=== PATIENT | male | born 1945 | race Caucasian/White ===

== ENCOUNTER 2018-02-02 10:25 | Observation (INO) | payer OTHER ==
[2018-02-02] MEDS ORDERED: POTASSIUM CL SA 10 MEQ TAB PO ONE (11:01)
[2018-02-02] MEDS ORDERED: Magnesium Sulfate 2gm IVPB 2 G/50 ML BAG IV ONE ×2 (11:01→16:00)
[2018-02-02 11:25] LABS: Absolute Lymphocytes (CBC) 0.7 K/uL (0.7-4.9); Absolute Monocytes 1.2 K/uL (0.1-1.3); Absolute Neutrophil 4.5 K/uL (1.8-8.0); Basophils % 0.3 % (0-1.3); Eosinophils % 0.6 % (0-4.4); Hematocrit 24.9 % (39.6-49.0); Lymphocytes % 11.1 % (15.3-44.8); MCH 28.2 pg (27.0-35.0); MCV 83.4 fL (80-100); MPV 7.7 fL (7.6-11.3); Monocytes % 18.1 % (3.3-12.3); RBC Red Blood Cell Count 2.99 M/uL (4.33-5.43)
[2018-02-02 11:34] LABS: Potassium 3.1 mmol/L (3.5-5.1)
[2018-02-02 11:41] LABS: Magnesium 0.9 mg/dL (1.8-2.4)
[2018-02-02] MEDS ORDERED: ACETAMINOPHEN 500 MG TAB ONE (11:43)
--- NOTE | 2018-02-02 12:08 | EDPHYS ---
Physician Documentation [facility] Name: Giovany Singh Age: 72 yrs Sex: Male : 1945 Arrival Date: 02/02/2018 Time: 10:29 Bed 16 Private MD: Gregorio Liu C ED Physician Jorge Ibrahim HPI: 02/02 18:44 This 72 yrs old Male presents to ER via Ambulatory with complaints of Low kdr Magnesium. 18:44 The patient had a blood draw from an outside lab which showed that the patient had low kdr mg and k. Sent for re-eval/confirmation and possible admission. Onset: The symptoms/episode began/occurred at an unknown time. Severity of symptoms: At their worst the symptoms were very mild in the emergency department the symptoms are unchanged. It is unknown whether or not the patient has had similar symptoms in the past. The patient has been recently seen by a physician: the patient's primary care provider. Historical: - Allergies: 10:37 Morphine; aj1 10:37 PENICILLINS; aj1 10:37 Codeine; aj1 - Home Meds: 10:37 Advair Diskus 250-50 mcg/dose Inhl dsdv [Active]; Coreg 25 mg Oral tab [Active]; aj1 gabapentin 100 mg Oral cap [Active]; metformin 500 mg Oral tab 2 tabs 2 times per day [Active]; victosa [Active]; pantoprazole 40 mg Oral TbEC [Active]; prednisone 10 mg Oral tab [Active]; Singulair 10 mg Oral tab [Active]; Spiriva daily [Active]; valsartan 320 mg Oral tab [Active]; Vitamin D3 5,000 unit Oral tab [Active]; Xarelto 20 mg Oral tab 1 tab once daily [Active]; Zyrtec 10 mg Oral tab [Active]; - PMHx: 10:37 Asthma; Bladder cancer; Diabetes - NIDDM; HEART STENT; Hyperlipidemia; Hypertension; aj1 Prostate Cancer; kidney cancer- currently undergoing chemo; melanoma; - PSHx: 10:37 prostate surgery; bladder surgery; back surgery; aj1 - Immunization history:: Flu vaccine is up to date. - Social history:: Smoking status: Patient/guardian denies using tobacco, the patient reports quitting approximately 20 years ago. - Ebola Screening: : Patient denies travel to an Ebola-affected area in the 21 days before illness onset. ROS: 18:44 Constitutional: Negative for fever, chills, and weight loss, Eyes: Negative for injury, kdr pain, redness, and discharge, Neck: Negative for injury, pain, and swelling, Cardiovascular: Negative for chest pain, palpitations, and edema, Respiratory: Negative for shortness of breath, cough, wheezing, and pleuritic chest pain, Abdomen/GI: Negative for abdominal pain, nausea, vomiting, diarrhea, and constipation, Back: Negative for injury and pain, : Negative for injury, bleeding, discharge, and swelling, MS/Extremity: Negative for injury and deformity, Skin: Negative for injury, rash, and discoloration, Neuro: Negative for headache, weakness, numbness, tingling, and seizure activity. Allergy/Immunology: Negative for hives, rash, and allergies. Exam: 18:44 Constitutional: This is a well developed, well nourished patient who is awake, alert, kdr and in no acute distress. Head/Face: Normocephalic, atraumatic. Eyes: Pupils equal round and reactive to light, extra-ocular motions intact. Lids and lashes normal. Conjunctiva and sclera are non-icteric and not injected. Cornea within normal limits. Periorbital areas with no swelling, redness, or edema. Neck: Trachea midline, no thyromegaly or masses palpated, and no cervical lymphadenopathy. Supple, full range of motion without nuchal rigidity, or vertebral point tenderness. No Meningismus. Chest/axilla: Normal chest wall appearance and motion. Nontender with no deformity. No lesions are appreciated. Cardiovascular: Regular rate and rhythm with a normal S1 and S2. No gallops, murmurs, or rubs. Normal PMI, no JVD. No pulse deficits. Respiratory: Lungs have equal breath sounds bilaterally, clear to auscultation and percussion. No rales, rhonchi or wheezes noted. No increased work of breathing, no retractions or nasal flaring. Abdomen/GI: Soft, non-tender, with normal bowel sounds. No distension or tympany. No guarding or rebound. No evidence of tenderness throughout. Back: No spinal tenderness. No costovertebral tenderness. Full range of motion. Skin: Warm, dry with normal turgor. Normal color with no rashes, no lesions, and no evidence of cellulitis. MS/ Extremity: Pulses equal, no cyanosis. Neurovascular intact. Full, normal range of motion. Neuro: Awake and alert, GCS 15, oriented to person, place, time, and situation. Cranial nerves II-XII grossly intact. Motor strength 5/5 in all extremities. Sensory grossly intact. Cerebellar exam normal. Normal gait. Psych: Awake, alert, with orientation to person, place and time. Behavior, mood, and affect are within normal limits. Vital Signs: 10:37 BP 112 / 57; Pulse 93; Resp 20; Temp 99.0(TE); Pulse Ox 99% on R/A; Weight 113.4 kg aj1 (R); Height 5 ft. 11 in. (180.34 cm) (R); Pain 0/10; 11:32 BP 114 / 67; Pulse 70; Resp 11; Pulse Ox 97% on R/A; tw2 11:45 Temp 99.6; tw2 12:00 BP 104 / 68; Pulse 74; Resp 17; Pulse Ox 98% on R/A; tw2 13:08 BP 111 / 98; Pulse 76; Resp 15; Pulse Ox 95% on R/A; tw2 13:10 Temp 98.7(O); tw2 10:37 Body Mass Index 34.87 (113.40 kg, 180.34 cm) aj1 MDM: 12:07 Patient medically screened. kdr 18:44 Data reviewed: vital signs, nurses notes, lab test result(s). Counseling: I had a kdr detailed discussion with the patient and/or guardian regarding: the historical points, exam findings, and any diagnostic results supporting the discharge/admit diagnosis, lab results, the need for further work-up and treatment in the hospital. 02/02 10:33 Order name: CBC with Diff [facility] 02/02 10:33 Order name: Chem 7; Complete Time: 11:55 kdr 02/02 10:33 Order name: Magnesium; Complete Time: 11:55 kdr 02/02 11:17 Order name: Strep; Complete Time: 11:55 tw2 02/02 11:37 Order name: Throat Culture [facility] 02/02 11:41 Order name: Blood Culture Adult (2) tw2 02/02 11:41 Order name: Urine Culture tw2 02/02 12:24 Order name: Potassium EDMS 02/02 12:24 Order name: Magnesium EDMS 02/02 12:24 Order name: Basic Metabolic Panel EDMS 02/02 12:24 Order name: Basic Metabolic Panel EDMS 02/02 12:24 Order name: CBC with Automated Diff EDMS 02/02 12:24 Order name: CBC with Automated Diff EDMS 02/02 12:37 Order name: Type And Screen kdr 02/02 10:51 Order name: IV Start; Complete Time: 11:16 tw2 02/02 12:24 Order name: Regular EDMS 02/02 12:46 Order name: Manual Differential EDMS Administered Medications: 11:10 Drug: Potassium Chloride 40 mEq Route: PO; tw2 11:53 Follow up: Response: No adverse reaction tw2 11:15 Drug: Magnesium Sulfate 2 grams Route: IVPB; Infused Over: 2 hrs; Site: left tw2 antecubital; 13:06 Follow up: Response: No adverse reaction; IV Status: Completed infusion tw2 11:45 Drug: Tylenol 1000 mg Route: PO; tw2 13:10 Follow up: Temp 98.7 Oral; Response: No adverse reaction; Temperature is decreased tw2 Disposition: 02/02/18 12:07 Hospitalization ordered by Gregorio Liu for Observation. Preliminary diagnosis are Other disorders of electrolyte and fluid balance, not elsewhere classified, Hypomagnesemia, Hypokalemia. - Bed requested for Telemetry/MedSurg (observation). - Status is Observation. tw2 - Condition is Fair. - Problem is new. - Symptoms have improved. UTI on Admission? No Signatures: Dispatcher [employer] EDAR Danyell Lopez RN RN aj1 Jorge Ibrahim MD MD kdr Judie Mcdonald Tara, RN RN tw2 Corrections: (The following items were deleted from the chart) 12:57 12:07 Hospitalization Ordered by A Noe HOWARD for Observation. Preliminary diagnosis is ag Other disorders of electrolyte and fluid balance, not elsewhere classified; Hypomagnesemia; Hypokalemia. Bed requested for Telemetry/MedSurg (observation). Status is Observation. Condition is Fair. Problem is new. Symptoms have improved. UTI on Admission? No. kdr 13:30 12:57 02/02/2018 12:07 Hospitalization Ordered by Gregorio Liu MD for Observation. tw2 Preliminary diagnosis is Other disorders of electrolyte and fluid balance, not elsewhere classified; Hypomagnesemia; Hypokalemia. Bed requested for Telemetry/MedSurg (observation). Status is Observation. Condition is Fair. Problem is new. Symptoms have improved. UTI on Admission? No. ag
--- NOTE | 2018-02-02 12:08 | ER ---
Nurse's Notes [facility] Name: Giovany Singh Age: 72 yrs Sex: Male : 1945 Arrival Date: 02/02/2018 Time: 10:29 Bed 16 Private MD: Gregorio Liu C Diagnosis: Other disorders of electrolyte and fluid balance, not elsewhere classified;Hypomagnesemia;Hypokalemia Presentation: 02/02 10:30 Presenting complaint: Patient states: "Dr. Liu called me this morning and said that my aj1 magnesium and sodium were dangerously low" Denies pain. Reports weakness, dizziness. Transition of care: patient was not received from another setting of care. Onset of symptoms was February 02, 2018. Risk Assessment: Do you want to hurt yourself or someone else? Patient reports no desire to harm self or others. Initial Sepsis Screen: Does the patient meet any 2 criteria? No. Patient's initial sepsis screen is negative. Does the patient have a suspected source of infection? No. Patient's initial sepsis screen is negative. Care prior to arrival: None. 10:30 Method Of Arrival: Ambulatory aj1 10:30 Acuity: CARLA 2 aj1 Triage Assessment: 10:37 General: Appears in no apparent distress. comfortable, Behavior is calm, cooperative, aj1 appropriate for age. Pain: Denies pain. Neuro: Level of Consciousness is awake, alert, obeys commands, Speech is normal, Facial symmetry appears normal, Reports dizziness, weakness. Cardiovascular: Patient's skin is warm and dry. Respiratory: Airway is patent Respiratory effort is even, unlabored, Respiratory pattern is regular, symmetrical. GI: Reports bloating. Derm: Skin is pink, warm \\T\\ dry. normal. Musculoskeletal: Circulation, motion, and sensation intact. Historical: - Allergies: 10:37 Morphine; aj1 10:37 PENICILLINS; aj1 10:37 Codeine; aj1 - Home Meds: 10:37 Advair Diskus 250-50 mcg/dose Inhl dsdv [Active]; Coreg 25 mg Oral tab [Active]; aj1 gabapentin 100 mg Oral cap [Active]; metformin 500 mg Oral tab 2 tabs 2 times per day [Active]; victosa [Active]; pantoprazole 40 mg Oral TbEC [Active]; prednisone 10 mg Oral tab [Active]; Singulair 10 mg Oral tab [Active]; Spiriva daily [Active]; valsartan 320 mg Oral tab [Active]; Vitamin D3 5,000 unit Oral tab [Active]; Xarelto 20 mg Oral tab 1 tab once daily [Active]; Zyrtec 10 mg Oral tab [Active]; - PMHx: 10:37 Asthma; Bladder cancer; Diabetes - NIDDM; HEART STENT; Hyperlipidemia; Hypertension; aj1 Prostate Cancer; kidney cancer- currently undergoing chemo; melanoma; - PSHx: 10:37 prostate surgery; bladder surgery; back surgery; aj1 - Immunization history:: Flu vaccine is up to date. - Social history:: Smoking status: Patient/guardian denies using tobacco, the patient reports quitting approximately 20 years ago. - Ebola Screening: : Patient denies travel to an Ebola-affected area in the 21 days before illness onset. Screenin:36 Abuse screen: Denies threats or abuse. Nutritional screening: No deficits noted. tw2 Tuberculosis screening: No symptoms or risk factors identified. Fall Risk None identified. Assessment: 10:45 General: Appears in no apparent distress. well groomed, Behavior is calm, cooperative, tw2 appropriate for age. Pain: Denies pain. Neuro: Level of Consciousness is awake, alert, obeys commands, Oriented to person, place, time, situation. Cardiovascular: Denies chest pain, shortness of breath, Heart tones S1 S2 Patient's skin is warm and dry. Respiratory: Airway is patent Respiratory effort is even, unlabored, Respiratory pattern is regular, symmetrical, Breath sounds are clear bilaterally. GI: Abdomen is round non-distended, Bowel sounds present X 4 quads. : No signs and/or symptoms were reported regarding the genitourinary system. EENT: No signs and/or symptoms were reported regarding the EENT system. Derm: No signs and/or symptoms reported regarding the dermatologic system. Musculoskeletal: Reports "just fatigued". 11:32 Reassessment: Patient appears in no apparent distress at this time. No changes from tw2 previously documented assessment. Patient and/or family updated on plan of care and expected duration. Pain level reassessed. Patient is alert, oriented x 3, equal unlabored respirations, skin warm/dry/pink. 12:30 Reassessment: Patient appears in no apparent distress at this time. No changes from tw2 previously documented assessment. Patient and/or family updated on plan of care and expected duration. Pain level reassessed. Patient is alert, oriented x 3, equal unlabored respirations, skin warm/dry/pink. 13:09 Reassessment: Patient appears in no apparent distress at this time. No changes from tw2 previously documented assessment. Patient and/or family updated on plan of care and expected duration. Pain level reassessed. Patient is alert, oriented x 3, equal unlabored respirations, skin warm/dry/pink. Vital Signs: 10:37 BP 112 / 57; Pulse 93; Resp 20; Temp 99.0(TE); Pulse Ox 99% on R/A; Weight 113.4 kg aj1 (R); Height 5 ft. 11 in. (180.34 cm) (R); Pain 0/10; 11:32 BP 114 / 67; Pulse 70; Resp 11; Pulse Ox 97% on R/A; tw2 11:45 Temp 99.6; tw2 12:00 BP 104 / 68; Pulse 74; Resp 17; Pulse Ox 98% on R/A; tw2 13:08 BP 111 / 98; Pulse 76; Resp 15; Pulse Ox 95% on R/A; tw2 13:10 Temp 98.7(O); tw2 10:37 Body Mass Index 34.87 (113.40 kg, 180.34 cm) aj1 ED Course: 10:29 Patient arrived in ED. mr 10:30 Greogrio Liu MD is Private Physician. mr 10:32 Jorge Ibrahim MD is Attending Physician. kdr 10:33 Triage completed. aj1 10:37 Arm band placed on Patient placed in an exam room. aj1 10:45 Bed in low position. Call light in reach. Side rails up X2. Adult w/ patient. Cardiac tw2 monitor on. Pulse ox on. NIBP on. Warm blanket given. 10:49 Denise Bro RN is Primary Nurse. tw2 11:16 Chem 7 Sent. tw2 11:16 CBC with Diff Sent. tw2 11:40 Inserted saline lock: 20 gauge in left antecubital area, using aseptic technique. Blood tw2 collected. 11:53 Blood Culture Adult (2) Sent. tw2 12:06 Gregorio Liu MD is Hospitalizing Provider. kdr 13:09 Report given to SALAZAR Wyatt. tw2 13:31 No provider procedures requiring assistance completed. Patient admitted, IV remains in tw2 place. Administered Medications: 11:10 Drug: Potassium Chloride 40 mEq Route: PO; tw2 11:53 Follow up: Response: No adverse reaction tw2 11:15 Drug: Magnesium Sulfate 2 grams Route: IVPB; Infused Over: 2 hrs; Site: left tw2 antecubital; 13:06 Follow up: Response: No adverse reaction; IV Status: Completed infusion tw2 11:45 Drug: Tylenol 1000 mg Route: PO; tw2 13:10 Follow up: Temp 98.7 Oral; Response: No adverse reaction; Temperature is decreased tw2 Outcome: 12:07 Decision to Hospitalize by Provider. kdr 13:30 Patient left the ED. tw2 13:31 Admitted to Med/surg accompanied by nurse, via wheelchair, room 404, with chart, Report tw2 called to SALAZAR Wyatt 13:31 Condition: stable 13:31 Instructed on the need for admit. Signatures: Danyell Lopez RN RN aj1 Jorge Ibrahim MD MD kdr Rivera, Maria mr Wise, Tara, RN RN tw2
[2018-02-02] MEDS ORDERED: ACETAMINOPHEN 500 MG TAB PO PRN (12:19)
[2018-02-02] MEDS ORDERED: ONDANSETRON 4 MG/2 ML VIAL IV PRN (12:19)
[2018-02-02 12:44] LABS: Anisocytosis 2+; Blood Morphology Comment NOTED (NOT SEEN); Hypochromasia 1+; Platelet Estimate ADEQ
[2018-02-02 14:17] LABS: Magnesium 1.5 mg/dL (1.8-2.4)
[2018-02-02] MEDS ORDERED: PNEUMOCOCCAL VACCINE 0.5 ML IMVAC ONE (15:00)
[2018-02-02] MEDS ORDERED: GLUCAGON 1 MG/VIAL IM PRN (15:24)
[2018-02-02] MEDS ORDERED: D50W 25 GM/50 ML SYRINGE IV PRN (15:24)
[2018-02-02] MEDS ORDERED: NA CHLORIDE 0.9% 250 ML ONE (16:07)
[2018-02-02] MEDS: INSULIN -REGULAR HUMAN 50 UNIT/0.5 ML ML SQ SCH ×2 (16:08→21:00)
[2018-02-02] MEDS: KCL 20 MEQ/100 mL IVPB 20 MEQ/100 ML BAG IV SCH ×2 (16:08→17:17)
[2018-02-02 22:03] LABS: Urine Appearance CLOUDY; Urine Bilirubin NEGATIVE (NEG); Urine Blood 1+ (NEG); Urine Color YELLOW; Urine Glucose NEGATIVE (NEG); Urine Protein 1+ (NEG); Urine Urobilinogen 0.2 mg/dL (0.2-1.0); Urine pH 5.5 (5.0-7.0)
[2018-02-02 22:09] LABS: Urine Microscopic Reflex ORDER UMIC
[2018-02-02 22:22] LABS: Urine Bacteria 20-50 /HPF (NONE SEEN); Urine Culture Reflex Order NOT NEEDED; Urine Mucus 2+ /HPF (NONE SEEN)
--- NOTE | 2018-02-03 05:34 | HP ---
Date of Admission: 02/02/2018 Chief Complaint: Abnormal blood test results. History Of Present Illness: This is a 72-year-old male patient, who had routine blood work done yest jessicaay at the office, and early this morning [facility] reported that his blood test was critical and ata zelaya found out that his magnesium level was 0.9, potassium level was 3.3. With that, the patient was co ntacted and I did talk to him this morning and requested the patient to come to emergency room for fu rther evaluation and management. After he was evaluated, he was admitted to the hospital. I saw him this evening. We have started to give him replacement of potassium and magnesium for correction. T he patient is undergoing chemotherapy at [facility] for his kidney cancer problem and he has been oneill ving diarrhea off and on lately. He says that his magnesium level was low at some point as he was to ld by [facility] and he takes [id number] magnesium 400 mg twice a day. Denies any vomiting. He was also started recently on Levaquin 1 tablet every other day for 4 doses and he just took 1 dose as it was just started recently. He is having some purulent type of discharge from his eyes on the medial angle and in the morning he has noted some matting of his eyelids, and this was very obvious w veda I saw him today. With his recent chemotherapy, he has lost some appetite and weight as he report s. His weight today upon admission is 250 pounds and last weight at office on January 04, 2018, it was 252 pounds. Medications: List reviewed. Review of Systems: GI: As mentioned above. Ophthalmology: As mentioned above. All other systems reviewed and negative. Allergies: HYDROCHLOROTHIAZIDE, MORPHINE, AND PENICILLIN. Past Medical History: Significant for kidney cancer, chronic steroid therapy, hypertension, mixed hy perlipidemia, diabetes mellitus, prostate cancer, bladder cancer, melanoma, osteoarthritis at multipl e sites, chronic anticoagulation therapy, chronic atrial fibrillation, adrenal insufficiency, gastroe sophageal reflux disease, allergic rhinitis. Past Surgical History: Radical prostatectomy in 1996, back surgery in 2008, sinus surgery 2009, yandel nary artery angioplasty with stent placement of LAD in 2014, surgery for bladder cancer and removal o f melanoma and removal of a lipoma in the past. Family History: Significant for colon cancer, liver cancer, breast cancer, lupus. Social History: Negative for smoking and alcohol use. Physical Examination: Vital Signs: When he first came into emergency room blood pressure 112/57, pulse 93, respiratory rat e 20, temperature 99, pulse ox 99%. Weight 113.4 kg, height 5 feet 11 inches. General: Awake, alert, oriented, not in distress. HEENT: Head atraumatic, normocephalic. Presence of some white, slightly yellowish colored discharge from medial angle of both eyes. Mouth, no thrush or edema noted. Ears/Nose; no mass, lesion, disch arge noted. Neck: Supple. No JVD, lymph nodes, bruit, thyromegaly noted. Lungs: Bilateral good equal air entry. Clear to auscultation. No rhonchi. No rales. Heart: Normal heart sounds, no murmur or gallop. Abdomen: Soft, bowel sounds normal. No guarding, rigidity, tenderness, mass, hepatosplenomegaly, dis tention, or bruit noted. Extremities: No leg edema. No calf tenderness. Skin: No rash, ulcer, cellulitis. Lymphatics: No lymph node enlargement in neck, supraclavicular, infraclavicular region. Neuro: No focal neurological deficit. Chest: Unremarkable. External Genitalia: Deferred. Rectal: Deferred. Laboratory Data: White count 6.4, hemoglobin 8.4, platelets 171. Sodium 134, potassium 3.1, chlorid e 94, bicarb 32, BUN 29, creatinine 2.10, glucose 116, magnesium 0.9. After initial correction in th e emergency room, potassium was 3, magnesium 1.5. Urinalysis; 2+ esterase, 20-50 bacteria, wbc 20-50 . Impression: 1.Hypomagnesemia. 2.Hypokalemia. 3.Volume depletion. 4.Diarrhea. 5.Urinary tract infection. 6.Anemia. 7.Kidney cancer. 8.Prostate cancer. 9.Bladder cancer. 10.Melanoma. 11.Hyperlipidemia, mixed. 12.Type 2 diabetes mellitus. 13.Chronic steroid therapy. 14.Chronic anticoagulation therapy. Plan: Admit the patient to hospital for further evaluation and management of this problem. The flako ent is appropriate for observation, and depending on his condition overnight we will plan to discharg e him to go home tomorrow. The patient's electrolytes will be corrected per protocol. We will mark nue home medications per order. Diabetes will be managed with sliding scale insulin, and I will see him tomorrow morning for followup. Details on plan of treatment discussed with patient and patient's . Upon discharge, we will make necessary changes on his magnesium and potassium replacement. Ken zelaya gets blood work at [facility] about almost every 2 weeks, and I will have him come to my office fo r blood work also every 2 weeks and we will not overlap blood work with [facility]. We will plan it in a way that he gets blood test done almost on a weekly basis to check on his electrolytes. Stool test was ordered for stool culture as well as stool C. diff. AIRAM/MODL Voice ID: [id number]
[2018-02-03 05:44] LABS: Absolute Lymphocytes (CBC) 0.8 K/uL (0.7-4.9); Absolute Monocytes 1.1 K/uL (0.1-1.3); Absolute Neutrophil 3.7 K/uL (1.8-8.0); Basophils % 0.3 % (0-1.3); Eosinophils % 1.2 % (0-4.4); Hematocrit 23.4 % (39.6-49.0); Lymphocytes % 13.8 % (15.3-44.8); MCH 28.1 pg (27.0-35.0); MCV 82.7 fL (80-100); MPV 7.9 fL (7.6-11.3); Monocytes % 19.2 % (3.3-12.3); RBC Red Blood Cell Count 2.83 M/uL (4.33-5.43)
[2018-02-03 05:58] LABS: Magnesium 1.6 mg/dL (1.8-2.4); Potassium 3.3 mmol/L (3.5-5.1)
[2018-02-03] MEDS ORDERED: MAGNESIUM SULFATE 1 gm IVPB 1 GM/100 ML BAG IV ONE (06:20)
[2018-02-03] MEDS ORDERED: Magnesium Sulfate 1gm IVPB 1 GM/50 ML BAG IV ONE (07:15)
[2018-02-03] MEDS: INSULIN -REGULAR HUMAN 50 UNIT/0.5 ML ML SQ SCH ×2 (07:30→11:30)
[2018-02-03] MEDS: KCL 20 MEQ/100 mL IVPB 20 MEQ/100 ML BAG IV SCH ×2 (07:44→11:20)
[2018-02-03 08:10] LABS: Anisocytosis 2+; Blood Morphology Comment NOTED (NOT SEEN); Platelet Estimate ADEQ; Poikilocytosis 1+; Urine White Blood Cell Casts OK
[2018-02-03] MEDS ORDERED: CARVEDILOL 25 MG PO SCH (09:00)
[2018-02-03] MEDS ORDERED: HOME MED 1 EA UNK (Montelukast [Singulair*] 10 MG) PO SCH (09:00)
[2018-02-03] MEDS ORDERED: HOME MED 1 EA UNK (Aspirin Chewable [Aspirin Chewable*] 81 MG) PO SCH (09:00)
[2018-02-03] MEDS ORDERED: TIOTROPIUM 18 MCG IH SCH (09:00)
[2018-02-03] MEDS ORDERED: RIVAROXABAN 20 MG PO SCH (09:00)
[2018-02-03] MEDS ORDERED: HOME MED 1 EA UNK (Fluticasone/Salmeterol [Advair 250/50 Diskus*] 1 PUFF) IH SCH (09:00)
[2018-02-03] MEDS ORDERED: HOME MED 1 EA UNK (Prednisone [Prednisone*] 10 MG) PO SCH (09:00)
[2018-02-03] MEDS ORDERED: LEVOFLOXACIN 750 MG PO SCH (09:00)
[2018-02-03] MEDS ORDERED: METOCLOPRAMIDE 10 MG PO SCH (09:00)
[2018-02-03] MEDS ORDERED: FUROSEMIDE 40 MG PO SCH (09:00)
[2018-02-03] MEDS ORDERED: NIFEDIPINE PO SCH (09:00)
--- NOTE | 2018-02-04 18:30 | DS ---
Date of Discharge: 02/03/2018 Disposition: Discharged to go home. Physical Examination: HEENT: Unremarkable. Lungs: Clear to auscultation. Heart: Sounds normal. Abdomen: Soft, bowel sounds normal. No guarding, rigidity, tenderness, or distention. Extremities: No leg edema. Hospital Course: A 72-year-old male patient, who came into office for routine blood work. In his bl ood test showed some critical abnormal electrolyte problems. Magnesium 0.7 and potassium was 3.3. T he patient was contacted and was asked to come to the emergency room. Repeat potassium was 3.1 and m agnesium level was 0.9. We started to correct his electrolyte abnormality in the emergency room and decision was made to admit him to hospital for observation, so we can continue to correct this proble m. The patient is undergoing chemotherapy at [facility] for his kidney cancer and he has gone throu gh 4 rounds of chemotherapy, he has 2 more to go and after that he will undergo surgery as he says. He has been having intermittent diarrhea. At home, he takes magnesium 400 mg tablet 2 times a day. After he was admitted to the hospital we corrected his electrolyte using electrolyte replacement prot ocol. He was noted to have some pink colored drainage from medial angle of both eyes and says this h as been going on lately. We will have to go ahead and treat him for conjunctivitis type of problem w ith some antibiotic eyedrops prescription for Vigamox was sent to his pharmacy from my office and the patient will use it as prescribed 1 drop 3 times a day in both eyes for 5-7 days. The patient had v olume depletion when he came in, it was corrected with IV fluid. He was given Levaquin 4 tablets 1 t ablet to be taken every other day from [facility] and he had just taken 1 tablet before he came into the hospital, he will continue to take that antibiotic as prescribed. He has received 2 units of pa cked red cell blood transfusion at [facility] this week on Tuesday and next week on Tuesday he is mateo g back for repeat blood work. I have advised him to come to my office on a weekly basis to get his b lood test done for close monitoring of his electrolytes and he will start that blood work as of this coming Tuesday, February 06, 2018. The patient was discharged to go home in stable condition with followi ng discharge medications and instructions. Final Diagnoses: 1.Hypomagnesemia. 2.Hypokalemia. 3.Volume depletion. 4.Diarrhea. 5.Urinary tract infection. 6.Anemia. 7.Kidney cancer. 8.Prostate cancer. 9.Bladder cancer. 10.Melanoma. 11.Hyperlipidemia. 12.Type 2 diabetes mellitus. 13.Chronic steroid therapy. 14.Chronic anticoagulation therapy. Discharge Medications And Instructions: 1.Continue all prior home medication except discontinue furosemide. 2.Start new medication as prescribed, which is spironolactone 25 mg 1 tablet by mouth daily. Magnes ium oxide 400 mg, patient to take 2 tablets by mouth 2 times a day. 3.Follow up at my office in 2 weeks. 4.Come to my office once a week for blood work starting 02/06/2018. Laboratory Data: Labs done during this hospitalization. Initial potassium was 3.1, BUN 29, creatini ne 2.10, magnesium 0.9. Last potassium 3.3, BUN 23, creatinine 1.40, magnesium 1.6. AIRAM/MODL Voice ID: [id number] Report ID: [id number]
== END 2018-02-03 18:35 | disposition home or self-care (01) ==
LOC: ER 10:25 → ERHOLD 12:17 → 4TH 13:10
PROVIDERS: ADMIT Internal Medicine; ATTEND Internal Medicine
DX: E83.42 Hypomagnesemia (principal); E87.6 Hypokalemia; E86.9 Volume depletion, unspecified; R19.7 Diarrhea, unspecified; N39.0 Urinary tract infection, site not specified; D64.9 Anemia, unspecified; C64.9 Malignant neoplasm of unspecified kidney, except renal pelvis; Z85.51 Personal history of malignant neoplasm of bladder; Z85.820 Personal history of malignant melanoma of skin; Z85.46 Personal history of malignant neoplasm of prostate; E78.5 Hyperlipidemia, unspecified; E11.9 Type 2 diabetes mellitus without complications; Z79.52 Long term (current) use of systemic steroids; Z79.01 Long term (current) use of anticoagulants; Z88.0 Allergy status to penicillin
CPT/HCPCS: 36415 ×2; 80048 ×2; 82962 ×3; 83735 ×4; 84132; 85025 ×2; 86850; 86900; 86901; 87040 ×2; 87045; 87046; 87070; 87081; 87086; 87088; 87493; 96365; 96366; 99285; G0378 ×2; J3475 ×3; 81003; 81015

== ENCOUNTER 2018-10-07 15:20 | Inpatient (IN) | payer OTHER ==
[2018-10-07] MEDS ORDERED: LEVALBUTEROL 1.25 MG/3 ML NEB ONE (16:38)
[2018-10-07] MEDS ORDERED: METHYLPREDNISOLONE 125 MG INJ ONE (16:38)
[2018-10-07 17:04] LABS: Absolute Lymphocytes (CBC) 0.8 K/uL (0.7-4.9); Absolute Neutrophil 5.2 K/uL (1.8-8.0); Basophils % 0.6 % (0-1.3); Eosinophils % 0.1 % (0-4.4); Hematocrit 38.5 % (39.6-49.0); Lymphocytes % 11.6 % (15.3-44.8); MPV 8.8 fL (7.6-11.3); Monocytes % 13.8 % (3.3-12.3); RBC Red Blood Cell Count 4.16 M/uL (4.33-5.43)
[2018-10-07 17:16] LABS: Potassium 4.4 mmol/L (3.5-5.1)
[2018-10-07] MEDS ORDERED: CEFTRIAXONE/SWI 1gm 1 GM/10 ML SYR ONE (17:49)
[2018-10-07] MEDS ORDERED: NA CHLORIDE 0.9% 500 ML ONE (17:49)
--- NOTE | 2018-10-07 18:13 | RAD REPORT ---
EXAM DESCRIPTION: RAD - Chest Single View - 10/07/2018 6:01 pm CLINICAL HISTORY: Cough;SOB Chest pain. COMPARISON: Chest Pa And Lat (2 Views) dated 09/09/2017; Chest Single View dated 09/07/2017; Chest Sin gle View dated 09/06/2017; Chest Single View dated 09/05/2017 FINDINGS: Portable technique limits examination quality. The lungs are grossly clear. The heart is mildly enlarged in size. Moderate S-shaped thoracic scolios is.
--- NOTE | 2018-10-07 18:24 | ER ---
Nurse's Notes [facility] Name: Giovany Singh Age: 73 yrs Sex: Male : 1945 Arrival Date: 10/07/2018 Time: 15:24 Bed 19 Private MD: Gregorio Liu C Diagnosis: Hypoxemia;Pneumonia;Urinary tract infection, site not specified Presentation: 10/07 16:06 Presenting complaint: Patient states: dry cough, shortness of breath, and chest aa5 tightness that began 2-3 days ago. Pt's reports last immunotherapy tx was 1 month ago. Transition of care: patient was not received from another setting of care. Onset of symptoms was September 2018. Risk Assessment: Do you want to hurt yourself or someone else? Patient reports no desire to harm self or others. Care prior to arrival: None. 16:06 Method Of Arrival: Ambulatory aa5 16:06 Acuity: CARLA 3 aa5 16:45 Initial Sepsis Screen: Does the patient meet any 2 criteria? No. Patient's initial tw2 sepsis screen is negative. Does the patient have a suspected source of infection? No. Patient's initial sepsis screen is negative. Triage Assessment: 16:45 General: Appears in no apparent distress. Behavior is calm. Pain: Denies pain. tw2 Respiratory: Reports shortness of breath Onset: The symptoms/episode began/occurred yesterday, the patient has moderate shortness of breath. Historical: - Allergies: 16:08 Morphine; aa5 16:48 Codeine; tw2 16:48 PENICILLINS; tw2 - Home Meds: 16:48 Advair Diskus 250-50 mcg/dose Inhl dsdv [Active]; clonidine HCl 0.1 mg Oral tab 1 tab 3 tw2 times per day [Active]; Coreg 25 mg Oral tab [Active]; gabapentin 100 mg Oral cap [Active]; metformin 500 mg Oral tab 2 tabs 2 times per day [Active]; pantoprazole 40 mg Oral TbEC [Active]; prednisone 10 mg Oral tab [Active]; Singulair 10 mg Oral tab [Active]; Spiriva daily [Active]; valsartan 320 mg Oral tab [Active]; Vitamin D3 5,000 unit Oral tab [Active]; victosa [Active]; Xarelto 20 mg Oral tab 1 tab once daily [Active]; Zyrtec 10 mg Oral tab [Active]; - PMHx: 16:08 Asthma; Bladder cancer; Diabetes - NIDDM; HEART STENT; Hyperlipidemia; Hypertension; aa5 melanoma; Prostate Cancer; Kidney/ 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 - Social history:: Smoking status: Patient/guardian denies using tobacco. - Ebola Screening: : Patient denies travel to an Ebola-affected area in the 21 days before illness onset No symptoms or risks identified at this time. - Family history:: not pertinent. - Hospitalizations: : No recent hospitalization is reported. Screenin:44 Abuse screen: Denies threats or abuse. Nutritional screening: No deficits noted. tw2 Tuberculosis screening: No symptoms or risk factors identified. Fall Risk Secondary diagnosis (15 points) impaired mobility. Assessment: 16:20 General: Appears in no apparent distress. comfortable, Behavior is calm, cooperative, em Reports feeling ill for 2-3 days. Pain: Complains of pain in chest and abdomen. Neuro: Level of Consciousness is awake, alert, obeys commands, Oriented to person, place, time, situation. Cardiovascular: Reports shortness of breath, since chest tightness Heart tones S1 S2 present Capillary refill < 3 seconds Rhythm is regular. Respiratory: Reports shortness of breath at rest cough that is non-productive, labored breathing Airway is patent Respiratory effort is even, unlabored, Respiratory pattern is regular, symmetrical, Breath sounds are diminished bilaterally. Onset: The symptoms/episode began/occurred 2-3 days. GI: Abdomen is obese. Derm: Skin is intact, is healthy with good turgor, Skin is pink, warm \T\ dry. Musculoskeletal: Capillary refill < 3 seconds, Range of motion: intact in all extremities. 16:46 Cardiovascular: Rhythm is regular. Respiratory: Airway is patent Respiratory effort is tw2 even, unlabored, Breath sounds with wheezes bilaterally. 17:30 Reassessment: Patient appears in no apparent distress at this time. Patient and/or em family updated on plan of care and expected duration. Pain level reassessed. reports having urinary frequency, request to have urine checked. 18:30 Reassessment: Patient appears in no apparent distress at this time. Patient and/or em family updated on plan of care and expected duration. Pain level reassessed. Patient is alert, oriented x 3, equal unlabored respirations, skin warm/dry/pink. Patient states feeling better. 19:15 Reassessment: Patient appears in no apparent distress at this time. Patient and/or cc3 family updated on plan of care and expected duration. Pain level reassessed. Patient is alert, oriented x 3, equal unlabored respirations, skin warm/dry/pink. Received this male patient from morning shift [facility] as a case of shortness of breath for admission awaiting bed availability. With IV cannula gauge 20 at the right ACV with ongoing IV antibiotic of Azithromycin infusing well. 20:30 Reassessment: Patient appears in no apparent distress at this time. Patient and/or cc3 family updated on plan of care and expected duration. Pain level reassessed. Patient is alert, oriented x 3, equal unlabored respirations, skin warm/dry/pink. Received a printed sticker for Procalcitonin but patient has procalcitonin result already so called the lab at extension [id number] to confirm and they said no need to repeat because there's procalcitonin result already. 20:37 Reassessment: Room available at 419, called for report but was told that the nurse who cc3 will receive the patient will just call me back for she endorsed a patient to the ICU. 20:37 Reassessment: Patient appears in no apparent distress at this time. Patient and/or cc3 family updated on plan of care and expected duration. Pain level reassessed. Patient is alert, oriented x 3, equal unlabored respirations, skin warm/dry/pink. 21:05 Reassessment: Patient appears in no apparent distress at this time. Patient and/or cc3 family updated on plan of care and expected duration. Pain level reassessed. Patient is alert, oriented x 3, equal unlabored respirations, skin warm/dry/pink. Report called and handed over to SALAZAR Flood for continuity of care and management. 21:30 Reassessment: Patient left ER for admission vitally stable by wheelchair escorted by ED cc3 za [place] on oxygen therapy of 2L by nasal cannula. Vital Signs: 16:09 BP 147 / 77; Pulse 84; Resp 16 S; Temp 98.3(TE); Pulse Ox 94% on R/A; Weight 123.38 kg aa5 (R); Height 5 ft. 11 in. (180.34 cm) (R); Pain 3/10; 16:48 BP 140 / 99; Pulse 92; Resp 29; Pulse Ox 98% ; ms 17:35 BP 146 / 84; Pulse 82; Resp 22; Pulse Ox 99% on R/A; Pain 2/10; dm5 19:15 BP 143 / 83; Pulse 72; Resp 19 S; Temp 98.7(O); Pulse Ox 91% on R/A; cc3 20:28 BP 165 / 96; Pulse 97; Resp 18 S; Pulse Ox 96% on 2 lpm NC; cc3 21:15 BP 147 / 96; Pulse 92; Resp 18 S; Pulse Ox 95% on 2 lpm NC; cc3 16:09 Body Mass Index 37.94 (123.38 kg, 180.34 cm) aa5 ED Course: 15:24 Patient arrived in ED. mr 15:25 Gregorio Liu MD is Private Physician. mr 16:06 Arm band placed on. aa5 16:07 Triage completed. aa5 16:10 Bed in low position. Call light in reach. compliance monitor on. Pulse ox on. NIBP on. tw2 16:11 Blayne Nj MD is Attending Physician. rn 16:41 EKG done, by ED staff, reviewed by Blayne Nj MD. ms 17:26 Carlos Marques, CHEMISTRY INSTRUCTOR is Primary Nurse. em 17:58 X-ray completed. Portable x-ray completed in exam room. Patient tolerated procedure la2 well. 18:01 Chest Single View In Process Unspecified. EDMS 18:23 Gregorio Liu MD is Hospitalizing Provider. rn 21:05 No provider procedures requiring assistance completed. Patient admitted, IV remains in cc3 place. Administered Medications: 16:45 Drug: Xopenex (3) 1.25 mg Route: Inhalation; tw2 17:36 Follow up: Response: No adverse reaction; Marked relief of symptoms dm5 16:48 Drug: SOLU-Medrol 125 mg Route: IVP; Site: right antecubital; tw2 17:36 Follow up: Response: No adverse reaction dm5 17:41 Drug: Rocephin - (cefTRIAXone) 1 grams Route: IVPB; Infused Over: 30 mins; Site: right tw2 antecubital; 19:15 Follow up: Response: No adverse reaction; IV Status: Completed infusion; IV Intake: 10mlem 17:47 Drug: NS 0.9% 500 ml Route: IV; Rate: bolus; Site: right antecubital; em 19:00 Follow up: Response: No adverse reaction; IV Status: Completed infusion; IV Intake: cc3 500ml 19:14 Drug: AZITHromycin 500 mg Route: IVPB; Infused Over: 1 hrs; Site: right antecubital; em 20:30 Follow up: Response: No adverse reaction; IV Status: Completed infusion; IV Intake: cc3 250ml Intake: 19:00 IV: 500ml; Total: 500ml. cc3 19:15 IV: 10ml; Total: 510ml. em 20:30 IV: 250ml; Total: 760ml. cc3 Outcome: 18:24 Decision to Hospitalize by Provider. rn 21:05 Admitted to Tele accompanied by tech, via wheelchair, room 419, with oxygen, with cc3 chart, Report called to SALAZAR Flood 21:05 Condition: stable 21:05 Instructed on the need for admit, Demonstrated understanding of instructions. 21:31 Patient left the ED. cc3 Signatures: Dispatcher [employer] Elizabeth Zapata RN RN [email or web address] Nael, Jasmina Marques, Carlos, CHEMISTRY INSTRUCTOR CHEMISTRY INSTRUCTOR [facility] Center[facility]ara ms, Roman, MD MD rn Calderon, Audri, RN RN [email or web address] Denise Bro RN RN tw2 Petra Fowler Charlene cc3 Corrections: (The following items were deleted from the chart) 19:18 17:30 Reassessment: reports having urinary frequency, request to have urine checked dm5 em 20:41 20:40 Reassessment: Patient appears in no apparent distress at this time. Patient cc3 and/or family updated on plan of care and expected duration. Pain level reassessed. Patient is alert, oriented x 3, equal unlabored respirations, skin warm/dry/pink. cc3
--- NOTE | 2018-10-07 18:25 | EDPHYS ---
Physician Documentation [facility] Name: Giovany Singh Age: 73 yrs Sex: Male : 1945 Arrival Date: 10/07/2018 Time: 15:24 Bed 19 Private MD: Gregorio Liu C ED Physician Blayne Nj HPI: 10/07 16:27 This 73 yrs old Male presents to ER via Ambulatory with complaints of rn Shortness Of Breath. 16:27 The patient has shortness of breath at rest, with light activity. rn 16:28 Onset: The symptoms/episode began/occurred 3 day(s) ago. The patient's shortness of rn breath is aggravated by light activity, talking, walking. Associated signs and symptoms: Pertinent positives: non-productive cough, fever, Pertinent negatives: hemoptysis. Severity of symptoms: At their worst the symptoms were moderate in the emergency department the symptoms are unchanged. The patient has experienced similar episodes in the past. The patient has not recently seen a physician. Historical: - Allergies: 16:08 Morphine; aa5 16:48 Codeine; tw2 16:48 PENICILLINS; tw2 - Home Meds: 16:48 Advair Diskus 250-50 mcg/dose Inhl dsdv [Active]; clonidine HCl 0.1 mg Oral tab 1 tab 3 tw2 times per day [Active]; Coreg 25 mg Oral tab [Active]; gabapentin 100 mg Oral cap [Active]; metformin 500 mg Oral tab 2 tabs 2 times per day [Active]; pantoprazole 40 mg Oral TbEC [Active]; prednisone 10 mg Oral tab [Active]; Singulair 10 mg Oral tab [Active]; Spiriva daily [Active]; valsartan 320 mg Oral tab [Active]; Vitamin D3 5,000 unit Oral tab [Active]; victosa [Active]; Xarelto 20 mg Oral tab 1 tab once daily [Active]; Zyrtec 10 mg Oral tab [Active]; - PMHx: 16:08 Asthma; Bladder cancer; Diabetes - NIDDM; HEART STENT; Hyperlipidemia; Hypertension; aa5 melanoma; Prostate Cancer; Kidney/ 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 - Social history:: Smoking status: Patient/guardian denies using tobacco. - Ebola Screening: : Patient denies travel to an Ebola-affected area in the 21 days before illness onset No symptoms or risks identified at this time. - Family history:: not pertinent. - Hospitalizations: : No recent hospitalization is reported. ROS: 16:28 Constitutional: Negative for weight loss Eyes: + congestion ENT: Negative for injury, rn pain, and discharge, Cardiovascular: Negative for chest pain, palpitations, and edema, Respiratory: + cough and sob Abdomen/GI: Negative for abdominal pain, nausea, vomiting, diarrhea, and constipation, MS/Extremity: Negative for injury and deformity, Skin: Negative for injury, rash, and discoloration, Neuro: Negative for headache, numbness, tingling, and seizure. Exam: 16:28 Constitutional: This is a well developed, well nourished patient who is awake, alert, rn and in no acute distress. Head/Face: Normocephalic, atraumatic. Eyes: Pupils equal round and reactive to light, extra-ocular motions intact. Lids and lashes normal. Conjunctiva and sclera are non-icteric and not injected. Cornea within normal limits. Periorbital areas with no swelling, redness, or edema. ENT: MMM, no stridor Neck: Trachea midline, no masses palpated. Supple, full range of motion Cardiovascular: Regular rate and irregular rhythm. No pulse deficits. Respiratory: Diminished breath sounds bilaterally Abdomen/GI: soft, non-tender MS/ Extremity: Pulses equal, no cyanosis. Neurovascular intact. Full, normal range of motion. Equal circumference. Neuro: Awake and alert, GCS 15, oriented to person, place, time, and situation. Vital Signs: 16:09 BP 147 / 77; Pulse 84; Resp 16 S; Temp 98.3(TE); Pulse Ox 94% on R/A; Weight 123.38 kg aa5 (R); Height 5 ft. 11 in. (180.34 cm) (R); Pain 3/10; 16:48 BP 140 / 99; Pulse 92; Resp 29; Pulse Ox 98% ; ms 17:35 BP 146 / 84; Pulse 82; Resp 22; Pulse Ox 99% on R/A; Pain 2/10; dm5 19:15 BP 143 / 83; Pulse 72; Resp 19 S; Temp 98.7(O); Pulse Ox 91% on R/A; cc3 20:28 BP 165 / 96; Pulse 97; Resp 18 S; Pulse Ox 96% on 2 lpm NC; cc3 21:15 BP 147 / 96; Pulse 92; Resp 18 S; Pulse Ox 95% on 2 lpm NC; cc3 16:09 Body Mass Index 37.94 (123.38 kg, 180.34 cm) aa5 MDM: 16:11 Patient medically screened. rn 18:20 Differential diagnosis: asthma, Bronchitis Myocardial Infarction pneumonia, rn Pneumothorax pulmonary edema. Data reviewed: vital signs, nurses notes, lab test result(s), EKG, radiologic studies, plain films, and as a result, I will admit patient. Counseling: I had a detailed discussion with the patient and/or guardian regarding: the historical points, exam findings, and any diagnostic results supporting the discharge/admit diagnosis, lab results, radiology results, the need for further work-up and treatment in the hospital. Response to treatment: the patient's symptoms have mildly improved after treatment, and as a result, I will admit patient. Admission orders: after a detailed discussion of the patient's condition and case, the admit orders are written by me. ED course: Notified Dr. Heath of admission.. 10/07 16:24 Order name: CBC with Diff; Complete Time: 17:31 rn 10/07 16:24 Order name: Basic Metabolic Panel; Complete Time: 17:31 rn 10/07 16:24 Order name: Blood Culture Adult (2) rn 10/07 16:24 Order name: Procalcitonin rn 10/07 16:24 Order name: Flu rn 10/07 16:24 Order name: Strep rn 10/07 17:38 Order name: Urine Dipstick--Ancillary (enter results) eb 10/07 17:47 Order name: Urine Culture em 10/07 17:57 Order name: Chest Single View; Complete Time: 18:20 EDMS 10/07 16:24 Order name: IV Start; Complete Time: 16:41 rn 10/07 16:24 Order name: EKG; Complete Time: 16:25 rn 10/07 16:24 Order name: EKG - Nurse/Tech; Complete Time: 16:41 rn 10/07 17:31 Order name: Urine Dipstick-Ancillary (obtain specimen); Complete Time: 17:36 rn Administered Medications: 16:45 Drug: Xopenex (3) 1.25 mg Route: Inhalation; tw2 17:36 Follow up: Response: No adverse reaction; Marked relief of symptoms dm5 16:48 Drug: SOLU-Medrol 125 mg Route: IVP; Site: right antecubital; tw2 17:36 Follow up: Response: No adverse reaction dm5 17:41 Drug: Rocephin - (cefTRIAXone) 1 grams Route: IVPB; Infused Over: 30 mins; Site: right tw2 antecubital; 19:15 Follow up: Response: No adverse reaction; IV Status: Completed infusion; IV Intake: 10mlem 17:47 Drug: NS 0.9% 500 ml Route: IV; Rate: bolus; Site: right antecubital; em 19:00 Follow up: Response: No adverse reaction; IV Status: Completed infusion; IV Intake: cc3 500ml 19:14 Drug: AZITHromycin 500 mg Route: IVPB; Infused Over: 1 hrs; Site: right antecubital; em 20:30 Follow up: Response: No adverse reaction; IV Status: Completed infusion; IV Intake: cc3 250ml Disposition: 10/07/18 18:24 Hospitalization ordered by Gregorio Liu for Inpatient Admission. Preliminary diagnosis are Hypoxemia, Pneumonia, Urinary tract infection, site not specified. - Bed requested for Telemetry/MedSurg (Inpatient). - Status is Inpatient Admission. cc3 - Condition is Stable. - Problem is new. - Symptoms have improved. UTI on Admission? Yes Signatures: Dispatcher [employer] EDAinsley Ramirez RN RN Carlos Marques, STUDENT SPECIALIST STUDENT SPECIALIST em Blayne Nj MD MD rn Calderon, Audri, RN RN aa5 Denise Bro RN RN tw2 Sharron Varela cc3 Elizabeth Guan RN dm5 Corrections: (The following items were deleted from the chart) 16:41 16:28 Constitutional: This is a well developed, well nourished patient who is awake, rn alert, and in no acute distress. Head/Face: Normocephalic, atraumatic. Eyes: Pupils equal round and reactive to light, extra-ocular motions intact. Lids and lashes normal. Conjunctiva and sclera are non-icteric and not injected. Cornea within normal limits. Periorbital areas with no swelling, redness, or edema. ENT: MMM, no stridor Neck: Trachea midline, no masses palpated. Supple, full range of motion Cardiovascular: Regular rate and rhythm. No pulse deficits. Respiratory: Diminished breath sounds bilaterally Abdomen/GI: soft, non-tender MS/ Extremity: Pulses equal, no cyanosis. Neurovascular intact. Full, normal range of motion. Equal circumference. Neuro: Awake and alert, GCS 15, oriented to person, place, time, and situation. rn 17:57 16:25 Chest Pa And Lat (2 Views)+[email or web address] ordered. EDMS EDMS 19:36 18:24 Hospitalization Ordered by A Noe HOWARD for Inpatient Admission. Preliminary fc diagnosis is Hypoxemia; Pneumonia; Urinary tract infection, site not specified. Bed requested for Telemetry/MedSurg (Inpatient). Status is Inpatient Admission. Condition is Stable. Problem is new. Symptoms have improved. UTI on Admission? Yes. rn 21:31 19:36 10/07/2018 18:24 Hospitalization Ordered by A Noe HOWARD for Inpatient Admission. cc3 Preliminary diagnosis is Hypoxemia; Pneumonia; Urinary tract infection, site not specified. Bed requested for Telemetry/MedSurg (Inpatient). Status is Inpatient Admission. Condition is Stable. Problem is new. Symptoms have improved. UTI on Admission? Yes. fc
[2018-10-07] MEDS ORDERED: AZITHROMYCIN 500 MG/250 ML BAG IV SCH (18:30)
[2018-10-07 19:54] LABS: Urine Blood 3+ (NEG); Urine Glucose TRACE (NEG); Urine Protein 3+ (NEG); Urine Specific Gravity 1.015 (1.005-1.030); Urine pH 7.5 (5.0-7.0)
[2018-10-07] MEDS ORDERED: GLUCAGON 1 MG/VIAL IM PRN (22:40)
[2018-10-07] MEDS ORDERED: CARVEDILOL 25 MG TAB PO ONE (22:42)
[2018-10-08] MEDS: METHYLPREDNISOLONE 40 MG INJ IV SCH ×2 (01:29→09:39)
[2018-10-08] MEDS: ALBUTEROL 2.5 MG/3 ML NEB SOL NEB PRN ×2 (03:00→19:23)
[2018-10-08] MEDS: IPRATROPIUM BROM 0.5MG/2.5ML NEB PRN ×2 (03:00→19:23)
[2018-10-08 06:39] LABS: Absolute Lymphocytes (CBC) 0.4 K/uL (0.7-4.9); Absolute Monocytes 0.3 K/uL (0.1-1.3); Absolute Neutrophil 5.4 K/uL (1.8-8.0); Basophils % 0.2 % (0-1.3); Hematocrit 36.9 % (39.6-49.0); Lymphocytes % 6.6 % (15.3-44.8); Monocytes % 4.3 % (3.3-12.3); RBC Red Blood Cell Count 3.96 M/uL (4.33-5.43)
[2018-10-08 06:54] LABS: Potassium 5.2 mmol/L (3.5-5.1)
[2018-10-08] MEDS: INSULIN -REGULAR HUMAN 50 UNIT/0.5 ML ML SQ SCH ×4 (08:09→21:20)
[2018-10-08] MEDS: CEFTRIAXONE/SWI 1gm 1 GM/10 ML SYR IV SCH ×2 (08:10→21:26)
[2018-10-08 08:57] LABS: Anisocytosis 1+; Blood Morphology Comment NOTED (NOT SEEN); Platelet Estimate ADEQ; Platelets, Giant MODERATE; Polychromasia 2+
[2018-10-08] MEDS ORDERED: CEFTRIAXONE 1 GM/NS 50 ML 1 GM/50 ML BAG IV SCH (09:00)
[2018-10-08] MEDS ORDERED: INFLUENZA VACCINE (for 3y+) 0.5 ML DOSE IMVAC ONE (09:00)
[2018-10-08] MEDS ORDERED: CARVEDILOL 25 MG TAB PO SCH (09:00)
[2018-10-08] MEDS ORDERED: NIFEDIPINE XL 30 MG TABLET PO SCH (09:00)
[2018-10-08] MEDS ORDERED: PNEUMOCOCCAL VACCINE 0.5 ML IMVAC ONE (09:00)
[2018-10-08] MEDS ORDERED: MAGIC MOUTHWASH PO PRN (10:34)
[2018-10-08] MEDS ORDERED: HOME MED 1 EA UNK (Albuterol Inhaler [Ventolin Inhaler*] 2 PUFF) IH PRN (10:34)
[2018-10-08] MEDS ORDERED: APAP PO PRN (10:34)
[2018-10-08] MEDS ORDERED: HYDROCODONE PO PRN (10:34)
--- NOTE | 2018-10-08 12:26 | EKG ---
Test Date: 2018-10-07 Test Time: 16:38:06 Gas Blender: MEASUREMENT RESULTS: Intervals: Rate: 92 DC: QRSD: 98 QT: 356 QTc: 440 [place]: P: DC: QRS: -19 T: 26 INTERPRETIVE STATEMENTS: Atrial fibrillation Abnormal ECG Compared to ECG 09/05/2017 15:47:14 No significant changes Electronically Signed On 10-08-18 12:24:28 CDT by Van Salguero
--- NOTE | 2018-10-08 12:44 | RAD REPORT ---
EXAM DESCRIPTION: USExtrem Venous W Compress Bil10/08/2018 12:38 pm CLINICAL HISTORY: Bilateral leg swelling COMPARISON: none FINDINGS: The common femoral, superficial femoral, popliteal and posterior tibial veins bilaterally are compressible and demonstrate augmentation. Doppler demonstrates good flow. IMPRESSION: No evidence of deep venous thrombosis involving either lower extremity.
--- NOTE | 2018-10-08 13:18 | RAD REPORT ---
EXAM DESCRIPTION: NM - Vent Perfusion VQ Scan - 10/08/2018 1:02 pm CLINICAL HISTORY: Shortness of breath COMPARISON: October 07, 2018 chest x-ray TECHNIQUE: 14.7 Mci [id number] was administered by inhalation. First breath, equilibrium, and washout images of the lungs obtained 7.6 millicuries Technetium-99 MAA was administered intravenously. Anterior, posterior, lateral and ob lique views of the lungs were taken. FINDINGS: The lungs demonstrate relatively homogeneous radiotracer activity on ventilation and perfu rahat sequences. No mismatched segmental or lobar perfusion defects are seen. IMPRESSION: No evidence of a pulmonary embolus
[2018-10-08] MEDS ORDERED: HYDRALAZINE 50 MG PO SCH (14:00)
[2018-10-08] MEDS: XARELTO 20 MG TABLET PO SCH (16:43)
[2018-10-08] MEDS: NA CHLORIDE 0.9% 1,000 ML IV SCH (16:43)
[2018-10-08] MEDS ORDERED: RIVAROXABAN 10 MG TABLET PO SCH (17:00)
[2018-10-08] MEDS ORDERED: AZITHROMYCIN IV 250 MG in NA CHLORIDE 0.9% 250 ML IVPB SCH (18:00)
[2018-10-08] MEDS ORDERED: GABAPENTIN 100 MG PO SCH (21:00)
[2018-10-08] MEDS ORDERED: SENNOSIDES PO SCH (21:00)
[2018-10-08] MEDS ORDERED: predniSONE 20 MG TAB PO SCH (21:00)
[2018-10-08] MEDS ORDERED: MAGNESIUM OXIDE PO SCH (21:00)
[2018-10-08] MEDS: VICTOZA INJECTION SQ SCH (21:23)
[2018-10-08] MEDS: HYDRALAZINE 25 MG TABLET PO SCH (21:24)
[2018-10-08] MEDS: ATORVASTATIN 10 MG TABLET PO SCH (21:24)
[2018-10-08] MEDS: SENOKOT S PO SCH (21:25)
[2018-10-08] MEDS: PREDNISONE 20 MG PO SCH (21:25)
[2018-10-08] MEDS: CARVEDILOL 25 MG PO SCH (21:26)
[2018-10-09] MEDS: NA CHLORIDE 0.9% 1,000 ML IV SCH (05:29)
[2018-10-09 06:34] LABS: Absolute Lymphocytes (CBC) 0.3 K/uL (0.7-4.9); Absolute Monocytes 0.8 K/uL (0.1-1.3); Absolute Neutrophil 7.3 K/uL (1.8-8.0); Basophils % 0.1 % (0-1.3); Hematocrit 35.3 % (39.6-49.0); Lymphocytes % 4.1 % (15.3-44.8); MPV 9.1 fL (7.6-11.3); Monocytes % 8.9 % (3.3-12.3); RBC Red Blood Cell Count 3.82 M/uL (4.33-5.43)
[2018-10-09 07:03] LABS: Magnesium 2.3 mg/dL (1.8-2.4)
[2018-10-09] MEDS: INSULIN -REGULAR HUMAN 50 UNIT/0.5 ML ML SQ SCH ×4 (07:47→22:23)
[2018-10-09] MEDS: CARVEDILOL 25 MG PO SCH ×2 (07:49→22:15)
[2018-10-09] MEDS: NIFEDIPINE XL 30 MG TABLET PO SCH (07:50)
[2018-10-09] MEDS: BAYER ASPIRIN 81 MG PO SCH (07:59)
[2018-10-09] MEDS: DAPSONE 100 MG TABLET PO SCH (07:59)
[2018-10-09] MEDS: PREDNISONE 20 MG PO SCH ×2 (08:00→22:15)
[2018-10-09] MEDS: HYDRALAZINE 25 MG TABLET PO SCH ×2 (08:01→22:17)
[2018-10-09] MEDS: MONTELUKAST 10 MG TABLET PO SCH (08:01)
[2018-10-09] MEDS: Meropenem 1,000 MG in NA CHLORIDE 0.9% 100 ML IV SCH ×2 (08:56→22:21)
[2018-10-09] MEDS: GUAIFENESIN/DM 5 ML UCUP PO PRN ×2 (08:57→22:40)
[2018-10-09] MEDS ORDERED: HOME MED 1 EA UNK (Pantoprazole [Protonix Tab*] 1 TAB) PO SCH (09:00)
[2018-10-09] MEDS ORDERED: NIFEDIPINE 60 MG PO SCH (09:00)
[2018-10-09] MEDS ORDERED: RIVAROXABAN 20 MG PO SCH (09:00)
[2018-10-09] MEDS ORDERED: Meropenem 1000 MG/VIAL IV SCH (09:00)
--- NOTE | 2018-10-09 09:57 | HP ---
Date of Admission: 10/08/2018 Chief Complaint: Shortness of breath and feeling tired and dry cough. History Of Present Illness: This is a 73-year-old pleasant male patient, who has kidney cancer, undergoing treatment at [facility], came into our emergency room with 2-3 days history of feeling very tired, dry cough and short of breath. Denies any fever, chills. No nausea, vomiting. No abdominal pain. For last 2-3 days, he is also having urinary frequency, but denies any hematuria or dysuria. He denies any instrumentation of his bladder in last 6 months. After he came to emergency room, he was evaluated and admitted to the hospital with diagnosis of urinary tract infection and pneumonia. I have reviewed chest x-ray result and radiologist has reported lungs being clear. No evidence of pneumonia. Allergies: TO CODEINE, MORPHINE, AND PENICILLIN AND ACCORDING TO OFFICE RECORD , IT IS ALSO LISTED ALLERGIC TO HYDROCHLOROTHIAZIDE. Review of Systems: Respiratory: As mentioned above. Genitourinary: As mentioned above. All other systems reviewed and negative. Medications: List reviewed. Past Medical History: Significant for kidney cancer, chronic steroid therapy, hypertension, mixed hyperlipidemia, diabetes mellitus, prostate cancer, bladder cancer, melanoma, osteoarthritis at multiple sites, chronic anticoagulation therapy, chronic atrial fibrillation, renal insufficiency, gastroesophageal reflux disease, allergic rhinitis. Past Surgical History: Radical prostatectomy in 1996, back surgery in 2008, sinus surgery in 2009, coronary artery angioplasty with stent placement of LAD in 2014, surgery for bladder cancer and removal of melanoma and removal of lipoma in the past. Family History: Significant for colon cancer, liver cancer, breast cancer, lupus. Social History: Negative for smoking, alcohol use. Physical Examination: Vital Signs: Temperature 97.4, pulse 84, respiratory rate 18, blood pressure 126/73, oxygen saturation 95%. Height 5 feet 11 inches, weight 270 pounds. General: Awake, alert, oriented, not in distress. HEENT: Head atraumatic, normocephalic. Conjunctivae nonerythematous. Sclerae white. Mouth, no thrush or edema noted. Ears/Nose, no mass, lesion, discharge noted. Neck: Supple. No JVD, lymph nodes, bruit, thyromegaly noted. Lungs: Bilateral good equal air entry. Clear to auscultation. No rhonchi. No rales. Heart: Normal heart sounds, no murmur or gallop. Abdomen: Soft, bowel sounds normal. No guarding, rigidity, tenderness, mass, hepatosplenomegaly, distention, or bruit noted. Extremities: No leg edema. No calf tenderness. Skin: No rash, ulcer, cellulitis. Lymphatics: No lymph node enlargement in neck, supraclavicular, infraclavicular region. Neuro: No focal neurological deficit. Chest: Unremarkable. External Genitalia: Deferred. Rectal: Deferred. Laboratory Data: Yesterday, white count 7, hemoglobin 12.2, platelets 205. Today, white count 6.1, hemoglobin 11.9, platelets 188. Yesterday, sodium 139, potassium 4.4, chloride 102, bicarb 26, BUN 22, creatinine 1.57, glucose 242. This morning, sodium 136, potassium 5.2, chloride 103, bicarb 25, BUN 30, creatinine 1.86, glucose 370. Troponin less than 0.02. Procalcitonin 2.06 yesterday. Urinalysis; positive for nitrite, esterase 3+, protein 3. Chest x- ray shows lungs clear of infiltrate, cardiomegaly present and scoliosis of thoracic spine, otherwise no other acute changes noted. Impression: 1. Urinary tract infection. 2. Rule out sepsis. 3. Rule out pulmonary embolism. 4. Hypertension. 5. Diabetes mellitus. 6. Hyperlipidemia, mixed. 7. Chronic atrial fibrillation. 8. Adrenal insufficiency. 9. Chronic steroid therapy. 10. Prostate cancer. 11. Bladder cancer. 12. Osteoarthritis, multiple sites. 13. Chronic anticoagulation therapy. 14. Gastroesophageal reflux disease. 15. Acute kidney injury. Plan: We will go ahead and admit the patient to hospital for further evaluation and management of this problem. The patient is appropriate for inpatient and is expected to spend 2 midnights in hospital. We will continue current IV antibiotics for urinary tract infection. Follow up on blood culture and depending on the final results on the culture, we will decide about culture- specific antibiotic. The patient clinically does not have any evidence of pneumonia and chest x-ray also has not shown any pneumonia. He takes his Xarelto regularly for chronic atrial fibrillation and I would like to rule out possibility of pulmonary embolism. Considering his elevated creatinine, we will not be able to get CT scan per PE protocol, so we will get a venous Doppler of lower extremities as well as V/Q scan done. Home medications will be continued per order. Diabetes will be managed with sliding scale insulin and we will not use any metformin in presence of acute kidney injury. Details and plan of treatment discussed with the patient. AIRAM/ANGIE Voice ID: [id number]
[2018-10-09] MEDS: XARELTO 20 MG TABLET PO SCH (16:50)
[2018-10-09] MEDS: ATORVASTATIN 10 MG TABLET PO SCH (22:18)
[2018-10-09] MEDS: SENOKOT S PO SCH (22:18)
[2018-10-09] MEDS: VICTOZA INJECTION SQ SCH (22:20)
--- NOTE | 2018-10-10 02:55 | PN ---
Date of Progress Note: 10/09/2018 Subjective: The patient was seen this morning for followup. He was lying in bed, not in distress. No shortness of breath is still present, but better than before. No new complaints or problems repor brandy. Physical Examination: Vital Signs: Reviewed. HEENT: Unremarkable. Lungs: Clear to auscultation. No rhonchi or rales. Heart: Sounds normal. Abdomen: Soft. Bowel sounds normal. No guarding, rigidity, tenderness, or distention. Extremities: No leg edema. Laboratory Data: Urine culture growing Proteus and it is ESBL. White count 8.4, hemoglobin 11.5, an d platelets 189. Sodium 137, potassium 5, chloride 104, bicarb 24, BUN 32, creatinine 1.41, glucose 273, and magnesium 2.3. Impression: 1.Urinary tract infection. 2.Hypertension. 3.Diabetes mellitus. 4.Volume depletion. Plan: We will go ahead and continue current medications, except we will discontinue current antibiot ics. Start the patient on meropenem as per culture and sensitivity result. PICC line was ordered. We will discontinue IV fluids. Repeat blood work tomorrow. Consult Physical Therapy to help ambulate t he patient. AIRAM/MODL Voice ID: [id number] Report ID: [id number]
[2018-10-10 06:50] LABS: Absolute Lymphocytes (CBC) 0.3 K/uL (0.7-4.9); Absolute Monocytes 0.6 K/uL (0.1-1.3); Absolute Neutrophil 4.9 K/uL (1.8-8.0); Basophils % 0.1 % (0-1.3); Hematocrit 33.7 % (39.6-49.0); Lymphocytes % 4.5 % (15.3-44.8); Monocytes % 10.5 % (3.3-12.3); RBC Red Blood Cell Count 3.65 M/uL (4.33-5.43)
[2018-10-10 07:02] LABS: Magnesium 2.3 mg/dL (1.8-2.4)
[2018-10-10] MEDS: Meropenem 1,000 MG in NA CHLORIDE 0.9% 100 ML IV SCH ×2 (09:35→20:58)
[2018-10-10] MEDS: INSULIN -REGULAR HUMAN 50 UNIT/0.5 ML ML SQ SCH ×5 (09:36→21:01)
[2018-10-10] MEDS: NIFEDIPINE XL 30 MG TABLET PO SCH (09:37)
[2018-10-10] MEDS: CARVEDILOL 25 MG PO SCH ×2 (09:39→20:59)
[2018-10-10] MEDS: PREDNISONE 20 MG PO SCH ×2 (09:40→20:58)
[2018-10-10] MEDS: HYDRALAZINE 25 MG TABLET PO SCH ×2 (09:41→20:59)
[2018-10-10] MEDS: BAYER ASPIRIN 81 MG PO SCH (09:43)
[2018-10-10] MEDS: DAPSONE 100 MG TABLET PO SCH (09:44)
[2018-10-10] MEDS: MONTELUKAST 10 MG TABLET PO SCH (09:47)
--- NOTE | 2018-10-10 11:22 | RAD REPORT ---
EXAM DESCRIPTION: XR CHEST 1 VIEW CLINICAL HISTORY: PICC placement MAHNAZ. COMPARISON: None. FINDINGS: The heart size is normal. No consolidation, pleural effusion, or pneumothorax is seen. The re are no acute bony findings. There is a left upper extremity PICC with the tip in the proximal SVC near the cavoatrial junction. IMPRESSION: Left upper extremity PICC with the tip in the proximal SVC near the cavoatrial junction. No pneumothorax. Electronically signed by: Froy Hannah MD 10/10/2018 1:28 AM CDT Due to temporary technical issues with the PACS/Fluency reporting system, reports are being signed by the in house radiologist as a courtesy to ensure prompt reporting. The interpreting radiologist is f ully responsible for the content of the report.
[2018-10-10] MEDS: GUAIFENESIN/DM 5 ML UCUP PO PRN ×2 (12:36→21:01)
[2018-10-10] MEDS: ALBUTEROL 2.5 MG/3 ML NEB SOL NEB PRN (13:36)
[2018-10-10] MEDS: IPRATROPIUM BROM 0.5MG/2.5ML NEB PRN (13:36)
[2018-10-10] MEDS: XARELTO 20 MG TABLET PO SCH (17:55)
[2018-10-10] MEDS: ATORVASTATIN 10 MG TABLET PO SCH (20:57)
[2018-10-10] MEDS: VICTOZA INJECTION SQ SCH (21:00)
[2018-10-10] MEDS: SENOKOT S PO SCH (21:00)
--- NOTE | 2018-10-10 22:21 | PN ---
Date of Progress Note: 10/10/2018 Subjective: The patient was seen this morning for followup, lying in bed, not in distress. Shortnes s of breath and generalized weakness problem is better, but not completely back to normal. Objective: Vital Signs: Reviewed. HEENT: Examination unremarkable. Lungs: Clear to auscultation. Heart: Sounds normal. Abdomen: Soft. Bowel sounds normal. No guarding, rigidity, tenderness, or distention. Extremities: No leg edema. Laboratory Data: White count 5.7, hemoglobin 10.7, platelets 176. Sodium 138, potassium 5, chloride 104, bicarb 26, BUN 38, creatinine 1.62, glucose 356. Impression: 1.Urinary tract infection. 2.Diabetes mellitus, uncontrolled. 3.Anemia. 4.Hypertension. Plan: We will go ahead and continue current diabetes management and add long-acting insulin injectio n per order. We will continue IV meropenem. Ambulation was encouraged. PICC line is in place in le arm. Social Service was consulted to help make arrangements for home IV antibiotics for meropenem for 2 weeks. Possible discharge to go home in next day or 2 days. AIRAM/MODL Voice ID: [id number] Report ID: [id number]
[2018-10-11] MEDS: MONTELUKAST 10 MG TABLET PO SCH (09:00)
[2018-10-11] MEDS: INSULIN -REGULAR HUMAN 50 UNIT/0.5 ML ML SQ SCH ×4 (09:09→20:29)
[2018-10-11] MEDS: Meropenem 1,000 MG in NA CHLORIDE 0.9% 100 ML IV SCH ×2 (09:10→20:25)
[2018-10-11] MEDS: CARVEDILOL 25 MG PO SCH ×2 (09:15→20:26)
[2018-10-11] MEDS: BAYER ASPIRIN 81 MG PO SCH (09:16)
[2018-10-11] MEDS: PREDNISONE 20 MG PO SCH ×2 (09:17→20:26)
[2018-10-11] MEDS: DAPSONE 100 MG TABLET PO SCH (09:18)
[2018-10-11] MEDS: NIFEDIPINE XL 30 MG TABLET PO SCH (09:19)
[2018-10-11] MEDS: HYDRALAZINE 25 MG TABLET PO SCH ×2 (09:20→20:28)
[2018-10-11] MEDS: IPRATROPIUM BROM 0.5MG/2.5ML NEB PRN ×2 (11:40→20:10)
[2018-10-11] MEDS: ALBUTEROL 2.5 MG/3 ML NEB SOL NEB PRN ×2 (11:40→20:10)
[2018-10-11] MEDS: XARELTO 20 MG TABLET PO SCH (16:58)
[2018-10-11] MEDS: SENOKOT S PO SCH (20:26)
[2018-10-11] MEDS: VICTOZA INJECTION SQ SCH (20:27)
[2018-10-11] MEDS: ATORVASTATIN 10 MG TABLET PO SCH (20:28)
[2018-10-12] MEDS: ALBUTEROL 2.5 MG/3 ML NEB SOL NEB PRN ×3 (00:10→16:05)
[2018-10-12] MEDS: IPRATROPIUM BROM 0.5MG/2.5ML NEB PRN ×3 (00:10→16:05)
--- NOTE | 2018-10-12 01:02 | PN ---
Date of Progress Note: 10/11/2018 Subjective: The patient was seen this morning for followup. No new complaints or problems reported by the patient. He still has some generalized weakness and shortness of breath, but that is improvin g on a day-to-day basis as he reported. He has started to ambulate with physical therapy. Denies an y new complaints. PICC line is in place. Objective: Vital Signs: Reviewed. HEENT: Unremarkable. Lungs: Clear to auscultation. Heart: Sounds normal. Abdomen: Soft. Bowel sounds normal. No guarding, rigidity, tenderness, or distention. Extremities: No leg edema. Laboratory Data: Fingerstick blood sugar readings reviewed. Impression: 1.Urinary tract infection, organism Proteus, ESBL. 2.Diabetes mellitus, uncontrolled. 3.Hypertension. Plan: We will continue current medications, IV meropenem, current antihypertensive medication, and w e will make adjustment on insulin per order. Respiratory therapies to assist the patient to wean off oxygen and then possible discharge to go home. Hopefully that might happen in next day or 2 days an [facility] Social Service is assisting with home IV antibiotic arrangements. AIRAM/MODL Voice ID: [id number] Report ID: [id number]
[2018-10-12] MEDS: INSULIN -REGULAR HUMAN 50 UNIT/0.5 ML ML SQ SCH ×4 (07:30→21:10)
[2018-10-12] MEDS: Meropenem 1,000 MG in NA CHLORIDE 0.9% 100 ML IV SCH ×2 (08:08→21:11)
[2018-10-12] MEDS: HYDRALAZINE 25 MG TABLET PO SCH ×2 (08:09→21:13)
[2018-10-12] MEDS: CARVEDILOL 25 MG PO SCH ×2 (08:10→21:14)
[2018-10-12] MEDS: NIFEDIPINE XL 30 MG TABLET PO SCH (08:12)
[2018-10-12] MEDS: PREDNISONE 20 MG PO SCH ×2 (08:13→21:15)
[2018-10-12] MEDS: DAPSONE 100 MG TABLET PO SCH (08:15)
[2018-10-12] MEDS: BAYER ASPIRIN 81 MG PO SCH (08:15)
[2018-10-12] MEDS: MONTELUKAST 10 MG TABLET PO SCH (08:16)
[2018-10-12] MEDS ORDERED: POLYVINYL ALCOHOL 1.4% 15 ML EACH EYE PRN (08:27)
[2018-10-12] MEDS: METHYLPREDNISOLONE 40 MG INJ IV SCH ×3 (09:37→17:45)
[2018-10-12] MEDS: XARELTO 20 MG TABLET PO SCH (17:44)
[2018-10-12] MEDS: SENOKOT S PO SCH (21:16)
[2018-10-12] MEDS: VICTOZA INJECTION SQ SCH (21:17)
[2018-10-12] MEDS: ATORVASTATIN 10 MG TABLET PO SCH (21:19)
[2018-10-13] MEDS: METHYLPREDNISOLONE 40 MG INJ IV SCH ×4 (00:26→18:09)
[2018-10-13] MEDS: ONDANSETRON 4 MG/2 ML VIAL IV PRN ×2 (00:27→16:17)
--- NOTE | 2018-10-13 03:25 | PN ---
Date of Progress Note: 10/12/2018 Subjective: The patient was seen this morning for followup. He still continues to have shortness of breath with activity, ambulates. Yesterday, he ambulated a little more than day before yesterday. He continues to require oxygen. Objective: Vital Signs: Reviewed. HEENT: Examination unremarkable. Lungs: Clear to auscultation. Heart: Sounds normal. Abdomen: Soft. Bowel sounds normal. No guarding, rigidity, or distention. Extremities: No leg edema. Laboratory Data: Fingerstick blood sugar readings reviewed. Urine culture growing Proteus. Blood c ulture remains negative. Impression: 1.Urinary tract infection. 2.Diabetes mellitus, uncontrolled. 3.Hypertension. 4.Chronic obstructive pulmonary disease. Plan: The patient takes his inhaler, which is Advair and Spiriva at home and he has been on it for a long time and we are continuing that in the hospital. He is also taking his chronic steroid therapy that the way he takes at home, but I will go ahead and start him on some IV steroid for maybe 24 daria rs or so, see if that helps to alleviate and if we can reduce the need for his oxygen, but I am afrai d that we will probably have to make arrangements for home oxygen. His COPD problem is chronic and s table at this point, and qualifying diagnosis for home oxygen will be COPD. We will continue current antibiotic. I will see him tomorrow for followup. AIRAM/ANGIE Voice ID: [id number] Report ID: [id number]
[2018-10-13] MEDS: IPRATROPIUM BROM 0.5MG/2.5ML NEB PRN ×3 (07:43→20:10)
[2018-10-13] MEDS: ALBUTEROL 2.5 MG/3 ML NEB SOL NEB PRN ×3 (07:43→20:11)
[2018-10-13] MEDS: INSULIN -REGULAR HUMAN 50 UNIT/0.5 ML ML SQ SCH ×4 (08:23→21:35)
[2018-10-13] MEDS: MONTELUKAST 10 MG TABLET PO SCH (09:00)
[2018-10-13] MEDS: BAYER ASPIRIN 81 MG PO SCH (09:01)
[2018-10-13] MEDS: CARVEDILOL 25 MG PO SCH ×2 (09:02→21:00)
[2018-10-13] MEDS: HYDRALAZINE 25 MG TABLET PO SCH ×2 (09:02→21:00)
[2018-10-13] MEDS: PREDNISONE 20 MG PO SCH ×2 (09:06→21:00)
[2018-10-13] MEDS: DAPSONE 100 MG TABLET PO SCH (09:09)
[2018-10-13] MEDS: Meropenem 1,000 MG in NA CHLORIDE 0.9% 100 ML IV SCH ×2 (09:15→21:35)
[2018-10-13] MEDS: NIFEDIPINE XL 30 MG TABLET PO SCH (09:16)
[2018-10-13] MEDS: MONTELUKAST 10 MG TAB PO SCH (09:27)
--- NOTE | 2018-10-13 14:08 | ECHO ---
HEIGHT: 5 ft 11 in WEIGHT: 270 lb 0 oz DATE OF STUDY: 10/13/[address]: Jatin Liu MD 2-DIMENSIONAL: YES M.MODE: YES DOPPLER: YES COLOR FLOW: YES TDS: NO PORTABLE: NO DEFINITY: NO BUBBLE STUDY: NO DIAGNOSIS: DYSPNEA/HYPERTENSION CARDIAC HISTORY: CATHERIZATION: YES SURGERY: NO PROSTHETIC VALVE: NO PACEMAKER: NO MEASUREMENTS (cm) DIASTOLIC (NORMALS) SYSTOLIC (NORMALS) IVSd 1.2 (0.6-1.2) LA Diam 4.8 (1.9-4.0) LVEF 74% LVIDd 4.1 (3.5-5.7) LVIDs 2.3 (2.0-3.5) %FS 43% LVPWd 1.3 (0.6-1.2) Ao Diam 3.9 (2.0-3.7) 2 DIMENSIONAL ASSESSMENT: RIGHT ATRIUM: NORMAL LEFT ATRIUM: DILATED RIGHT VENTRICLE: NORMAL LEFT VENTRICLE: NORMAL TRICUSPID VALVE: NORMAL MITRAL VALVE: NORMAL PULMONIC VALVE: NORMAL AORTIC VALVE: NORMAL PERICARDIAL EFFUSION: NONE AORTIC ROOT: NORMAL LEFT VENTRICULAR WALL MOTION: NORMAL. DOPPLER/COLOR FLOW: MILD MITRAL AND TRICUSPID REGURGITATION. ESTIMATED RIGHT VENTRICULAR SYSTOLIC PRESSURE 68mmHg (SEVERE PULMONARY HYPERTENSION). COMMENTS: NORMAL LEFT VENTRICULAR EJECTION FRACTION. DILATED LEFT ATRIUM. MILD MITRAL AND TRICUSPID REGURGITATION. SEVERE PULMONARY HYPERTENSION. ABNORMAL APPEARANCE OF LIVER, POSSIBLE NODULES. TECHNOLOGIST: ARACELI ROMERO
[2018-10-13] MEDS: XARELTO 20 MG TABLET PO SCH (18:14)
--- NOTE | 2018-10-13 21:28 | PN ---
Date of Progress Note: 10/13/2018 Subjective: The patient was seen this morning for followup. The patient continues to remain on oxyg en, and he still gets short of breath when he gets up and tries to ambulate. Objective: Vital Signs: Reviewed. HEENT: Unremarkable. Lungs: Clear to auscultation. No rhonchi. No rales. Heart: Sounds normal. Abdomen: Soft. Bowel sounds normal. No guarding, rigidity, tenderness, distention. Extremities: No leg edema. Impression: 1.Urinary tract infection, organism Proteus, extended-spectrum beta-lactamase. 2.Hypoxia. 3.Chronic obstructive pulmonary disease, chronic, stable. 4.Rule out congestive heart failure. 5.Hypertension. 6.Diabetes mellitus. Plan: The patient's COPD problem is stable, but he is still having significant hypoxia and shortness of breath with activity. We will go ahead and get echocardiogram to evaluate his left ventricular e jection fraction and then decide if there is any further treatment intervention needed or not. Wilman phillips, continue current IV antibiotic, which is meropenem. Social Service started helping him yesterd ay for home oxygen, and I did talk to him yesterday about oxygen device, Inogen, and the patient jeanette jettantoine about it and today he tells me that he is willing to go ahead and purchase that instead of oxygen that will be provided in oxygen cylinder by his insurance. The patient is expected to spend a lot o f time outside his house on the road and away from the home because of his appointments at [facility] for his [facility] treatment and after thinking about all that he realized that he would like to invest igate into this Inogen oxygen concentrator and portable oxygen device, so I did communicate with Soci al Service regarding that and Social Service will assist the patient with this arrangement. Once arrangement gets completed, then we will be able to discharge him to go home. AIRAM/MODL Voice ID: [id number] Report ID: [id number]
[2018-10-13] MEDS: ATORVASTATIN 10 MG TABLET PO SCH (21:39)
[2018-10-13] MEDS: SENOKOT S PO SCH (21:40)
[2018-10-13] MEDS: VICTOZA INJECTION SQ SCH (21:45)
[2018-10-14] MEDS: METHYLPREDNISOLONE 40 MG INJ IV SCH ×4 (01:13→17:30)
[2018-10-14 07:25] LABS: Absolute Lymphocytes (CBC) 0.3 K/uL (0.7-4.9); Absolute Monocytes 0.6 K/uL (0.1-1.3); Absolute Neutrophil 8.1 K/uL (1.8-8.0); Basophils % 0.1 % (0-1.3); Hematocrit 39.1 % (39.6-49.0); Lymphocytes % 3.5 % (15.3-44.8); MPV 9.9 fL (7.6-11.3); Monocytes % 6.3 % (3.3-12.3); RBC Red Blood Cell Count 4.21 M/uL (4.33-5.43)
[2018-10-14] MEDS: INSULIN -REGULAR HUMAN 50 UNIT/0.5 ML ML SQ SCH ×4 (07:30→23:40)
[2018-10-14] MEDS: ALBUTEROL 2.5 MG/3 ML NEB SOL NEB ONE ×2 (07:55→10:25)
[2018-10-14] MEDS: PREDNISONE 20 MG PO SCH ×2 (09:00→22:19)
[2018-10-14] MEDS: NIFEDIPINE XL 30 MG TABLET PO SCH (09:00)
[2018-10-14] MEDS: BAYER ASPIRIN 81 MG PO SCH (09:54)
[2018-10-14] MEDS: MONTELUKAST 10 MG TAB PO SCH (09:54)
[2018-10-14] MEDS: HYDRALAZINE 25 MG TABLET PO SCH (09:55)
[2018-10-14] MEDS: CARVEDILOL 25 MG PO SCH ×2 (09:56→21:00)
[2018-10-14] MEDS: DAPSONE 100 MG TABLET PO SCH (09:57)
[2018-10-14] MEDS: Meropenem 1,000 MG in NA CHLORIDE 0.9% 100 ML IV SCH (09:59)
[2018-10-14 10:13] LABS: Magnesium 2.8 mg/dL (1.8-2.4)
[2018-10-14 10:16] LABS: Potassium 6.9 mmol/L (3.5-5.1)
[2018-10-14] MEDS ORDERED: GLUCAGON 1 MG/VIAL IM PRN (10:20)
[2018-10-14] MEDS ORDERED: D50W 25 GM/50 ML SYRINGE IV PRN (10:20)
[2018-10-14] MEDS ORDERED: INSULIN -REGULAR HUMAN 50 UNIT/0.5 ML ML IV ONE ×2 (10:21→13:37)
[2018-10-14] MEDS: ARFORMOTEROL TARTRATE 15 MCG/2 ML VIAL.NEB NEB SCH ×3 (10:25→20:00)
[2018-10-14] MEDS ORDERED: CALCIUM GLUC 10% INJ 4.65 MEQ in NA CHLORIDE 0.9% 100 ML IV ONE (10:31)
--- NOTE | 2018-10-14 10:36 | P.CNS ---
Date of Consult: 10/14/18 Chief Complaint: RESPIRATORY FAILURE SEVERE PULMONARY HYPERTENSION RENAL FAILURE History of Present Illness: Patient is 73 years of age multiple medical problems treated at [facility] admitted to this hospital complaining of cough shortness of breath having some urinary frequency patient was on the floor was transferred to the ICU with respiratory distress is currently on BiPAP he does have a CPAP denies any history of pulmonary problems before alert responsive cooperative renal function appears to be worse. Patient's chest x-ray was clear on admission repeat chest x-ray ordered echocardiogram shows severe pulmonary hypertension the 1 done last year showed only mild changes this no right ventricular dilatation UA was positive for EES BAL Allergies codeine Allergy (Verified 06/09/15 15:20) Itching morphine Allergy (Verified 06/09/15 15:20) Itching Penicillins Allergy (Verified 06/09/15 15:20) Rash Home Medications: Carvedilol [Coreg] 25 mg PO BID 06/11/15 Fluticasone/Salmeterol [Advair 250/50 Diskus] 1 puff IH BID 06/11/15 Montelukast [Singulair] 10 mg PO DAILY 06/11/15 Rivaroxaban [Xarelto] 20 mg PO DAILY 06/11/15 Tiotropium [Spiriva Handihaler] 1 puff IH DAILY 06/11/15 Aspirin Chewable [Aspirin Chewable*] 81 mg PO DAILY #30 tab.chew 06/12/15 Cholecalciferol (Vitamin D3) [Vitamin D3] 5,000 units PO DAILY 09/06/17 Gabapentin [Neurontin*] 100 mg PO BID 09/06/17 Metformin ER [Glucophage ER*] 1,000 mg PO BID 09/06/17 Atorvastatin Calcium [Lipitor*] 1 tab PO DAILY 02/02/18 Acetaminophen with Codeine [Acetaminophen-Cod #3 Tablet] 2 tab PO BID PRN Albuterol Inhaler [Ventolin Inhaler*] 2 puff IH Q6H PRN 10/08/18 Dapsone [Dapsone*] 1 tab PO DAILY 10/08/18 Hydralazine HCl 25 mg PO BID 10/08/18 Hydrocodone 5/APAP 325 [Ida 5/325*] 1 tab PO Q6H PRN 10/08/18 Liraglutide [Saxenda] 29 units SQ BEDTIME 10/08/18 Liraglutide [Victoza 2-Dakota] 1.8 mg SQ BEDTIME 10/08/18 Magic Mouthwash [Magic Mouthwash*] 10 ml PO QID PRN 10/08/18 Magnesium Oxide [Mag 0X Tab] 1,600 mg PO BID 10/08/18 Nifedipine [Nifedipine ER] 30 mg PO DAILY 10/08/18 Pantoprazole [Protonix Tab*] 1 tab PO DAILY 10/08/18 Sennosides/Docusate Sodium [Senna-S Laxative Tablet] 2 each PO BEDTIME 10/08/18 Tramadol HCl [Ultram] 50 mg PO PRN PRN 10/08/18 predniSONE [Deltasone] 10 mg PO DAILY 10/08/18 predniSONE [Prednisone*] 5 mg PO BEDTIME 10/08/18 - Past Medical/Surgical History Diabetic: Yes -: AFib -: sleep apnea -: NIDDM -: asthma -: HTN -: melenoma -: bladder, prostate, kidney cancer -: HLD -: back sx -: prostate removed -: melenoma cheek -: bladder tumors removed -: sinusitis sx - Family History Father Medical History: Hypertension, Cancer, Liver disease Notes: colon, throat Mother Medical History: Hypertension, Diabetes, Cancer Notes: colon Sister Medical History: Cancer Notes: breast CA - Social History Alcohol use: No CD- Drugs: No Caffeine use: Yes Place of Residence: Home Review of Systems General: Weakness Respiratory: Shortness of Breath Physical Examination Temp Pulse Resp BP Pulse Ox 97.5 F 91 H 28 H 120/64 96 10/14/18 04:00 10/14/18 07:00 10/14/18 07:00 10/14/18 07:00 10/14/18 07:00 General: Alert, Oriented x3 Neck: Supple Cardiovascular: No edema, Normal S1 S2 Gastrointestinal: Normal bowel sounds, Soft and benign - Problems (1) Respiratory failure Current Visit: Yes Status: Acute Plan: Patient is 73 years of age admitted with cough shortness of breath once for to the ICU ordered ABGs chest x-ray renal function worse severe pulmonary hypertension on the echocardiogram patient is anti coagulated on Xarelto urine culture shows ESBL Proteus. Patient is on meropenem vital signs stable hyperkalemia pro calcitonin level elevated on admission Qualifiers: Chronicity: acute
[2018-10-14] MEDS: D50W 25 GM/50 ML SYRINGE IV PRN ×2 (10:45→14:07)
--- NOTE | 2018-10-14 12:11 | RAD REPORT ---
EXAM DESCRIPTION: Lori Single View10/14/2018 11:22 am CLINICAL HISTORY: Shortness of breath COMPARISON: October 10 FINDINGS: A few areas of subsegmental atelectasis are present within the right lung base Left lung appears clear Heart is mildly to moderately enlarged PICC line is present within the superior vena cava pointing laterally
[2018-10-14 12:36] LABS: Arterial Blood Carboxyhemoglob 0.7 % (0-1.5); Blood Gas Oxyhemoglobin 93.7 % (94-97); Blood O2 Saturation 96.1 % (92-98.5)
[2018-10-14] MEDS: ONDANSETRON 4 MG/2 ML VIAL IV PRN ×2 (13:25→19:21)
[2018-10-14 13:30] LABS: Potassium 6.4 mmol/L (3.5-5.1)
[2018-10-14] MEDS ORDERED: ALBUTEROL 2.5 MG/3 ML NEB SOL NEB ONE (13:36)
[2018-10-14] MEDS ORDERED: NA CHLORIDE 0.9% 250 ML IV ONE (13:36)
--- NOTE | 2018-10-14 13:37 | RAD REPORT ---
EXAM DESCRIPTION: US - Renal Ultrasound-Complete - 10/14/2018 12:35 pm CLINICAL HISTORY: Acute renal in failure COMPARISON: August 2017 cat scan FINDINGS: The right kidney measures 10 cm with an increased echotexture. The left kidney measures 12 cm with an increased echotexture. 1.4 centimeter left renal cyst Bilateral renal cortical thinning Hydronephrosis is not seen. Bladder is poorly seen. IMPRESSION: Increased renal echotexture consistent with parenchymal disease No hydronephrosis Previously seen 3.6 centimeter mass within the upper pole of the right kidney is not clearly visualiz ed on this exam. It is uncertain if the patient has had surgery and/or radiation/chemotherapy.
[2018-10-14] MEDS ORDERED: SOD POLYSTYREN SUL 15 GM/60 ML UCUP PO ONE ×2 (13:39→18:31)
[2018-10-14] MEDS ORDERED: PROMETHAZINE 25 MG/ML VIAL IV PRN (15:54)
[2018-10-14] MEDS: D5W 1,000 ML with NA BICARB 8.4% 150 MEQ IV SCH ×2 (16:44)
[2018-10-14] MEDS ORDERED: PROMETHAZINE 25 MG/ML VIAL ONE (16:52)
--- NOTE | 2018-10-14 18:11 | CON ---
History Of Present Illness: Mr. Singh has been in the hospital almost a week. He is a chronic AFib patient, and he has a history of intracoronary stent in the proximal LAD several years ago. He is no t having angina. His abdominal pain seems to be improving. It is believed by his doctors and fairly certain that he had diverticulitis that is just about improved. His AFib is chronic. He has been i n it for several years. As outpatient, he has taken Xarelto 20 mg daily. While here in the hospital , his kidney function has deteriorated greatly and I think I am asked to consult about anticoagulant doses. His creatinine was 1.57 when he came in. The most recent one is 3.26. His potassium is very high, and Kayexalate is being given to try and bring that down. He is not a dialysis patient and th e exact cause of the acute renal failure is not known. Xarelto has been stopped and that is appropri ate. With his level of renal failure, we should probably try to give him a reduced dose of enoxapari n as the preferred dose I think about 100 mg every 24 hours would probably be about right, but we hilda l ask Pharmacy to consult with that. Physical Examination: General: He is 5 feet and 11 inches, 282 pounds, not in distress. Heart: Irregularly irregular. It is going about 85 times a minute. Lungs: Clear. Extremities: Mild edema. Abdomen: Obese, not tender. Recommendations: My recommendation is that we give him Lovenox 100 mg subcu every 24 hours beginning in the morning. LUIS MANUEL/ANGIE Voice ID: [id number] Report ID: [id number]
[2018-10-14] MEDS ORDERED: FUROSEMIDE 40 MG/4 ML VIAL IV ONE (18:14)
[2018-10-14 18:32] LABS: BUN Blood Urea Nitrogen 105 mg/dL (7-18); Bicarbonate 20 mmol/L (21-32); CKMB Creatine Kinase MB 2.5 ng/mL (0.3-3.6); Glucose Level 170 mg/dL (74-106); Sodium Level 137 mmol/L (136-145); Troponin I < 0.02 ng/mL (0.0-0.045)
[2018-10-14 18:35] LABS: Potassium 6.5 mmol/L (3.5-5.1)
[2018-10-14] MEDS ORDERED: SUCCINYLCHOLINE 20 MG/ML (10 ML) IV ONE (19:49)
[2018-10-14] MEDS ORDERED: LIDOCAINE 2% MPF 5 ML VIAL ONE (19:56)
[2018-10-14] MEDS ORDERED: PROPOFOL 200 MG/20 ML VIAL IV ONE (19:56)
[2018-10-14] MEDS ORDERED: NS 0.9% VIAL 30 ML ONE (20:07)
--- NOTE | 2018-10-14 20:16 | PN ---
Date of Progress Note: 10/14/2018 Subjective: The patient was seen this morning for followup. He was in ICU this morning. Yesterday evening, the patient was transferred to ICU from medical floor because of low blood pressure problem. When I saw him this morning, he was lying in bed, not in any distress, was on BiPAP because of resp iratory failure problem along with the hypotension. He denied any chest pain. Denied any shortness of breath. No abdominal pain. Denied any nausea and vomiting, but he did have 1 episode when he lef t hospital. Objective: Vital Signs: Reviewed. HEENT: Unremarkable. Lungs: Clear to auscultation. No rhonchi. No rales. Heart: Sounds normal. Abdomen: Soft. Bowel sounds normal. No guarding, rigidity, tenderness, or distention. Extremities: No leg edema. Laboratory Data: Echocardiogram from yesterday shows normal ejection fraction and it also shows cinthia re pulmonary hypertension. White count this morning 9, hemoglobin 12.4, platelets 196. Sodium 136, potassium 6.9, chloride 100, bicarb 20, BUN 94, creatinine 3.25, glucose 182. His chest x-ray shows some subsegmental atelectasis. No infiltrate. Otherwise, lungs are clear. Impression: 1.Acute renal failure. 2.Hyperkalemia. 3.Paroxysmal atrial fibrillation. 4.Anemia. 5.Hypertension. 6.Diabetes mellitus. 7.Urinary tract infection. 8.Severe pulmonary hypertension. Plan: The patient's condition deteriorated overnight, he was brought into ICU and we will continue h is IV antibiotics at this point, which is meropenem. IV fluid was ordered. Solano catheter was order ed. We will consult Cardiology for atrial fibrillation. The patient took his last Xarelto yesterday evening and in view of acute renal failure, we will discontinue Xarelto and we will use different fo rm of anticoagulation for him. Follow up with financial accounting manager regarding atrial fibrillation. We will c onsult Dr. Portillo for severe pulmonary hypertension and respiratory failure. Consult brake operator helper for acute renal failure. For hyperkalemia, we have given him treatment for hyperkalemia including al buterol nebulizer treatment, sodium bicarbonate, and calcium gluconate intravenously, Kayexalate, IV D50 and IV insulin. Details were discussed with the patient's , who was at bedside. Last blood work this evening, potassium continues to remain elevated in spite of treatment for hyperkalemia and brake operator helper is recommending emergency hemodialysis for patient. His blood pressure has stabilized w ith some IV fluid boluses and IV fluid. We will see him tomorrow for followup. AIRAM/MODL Voice ID: [id number] Report ID: [id number]
[2018-10-14] MEDS ORDERED: MANNITOL 25% 12.5 GM/50 ML VIAL IV PRN (20:19)
[2018-10-14] MEDS ORDERED: NA CHLORIDE 0.9% 1,000 ML IV PRN (20:19)
[2018-10-14] MEDS ORDERED: NS 0.9% VIAL 10 ML ONE (20:23)
--- NOTE | 2018-10-14 20:50 | P.OP ---
Preoperative diagnosis: ARF, Hyperkalemia Postoperative diagnosis: same Primary procedure: RIJ Santos Catheter Secondary procedure: Fluoroscopy Anesthesia: MAC Estimated blood loss: min Specimen: none Findings: normal anatomy Complications: None Transferred to: ICU Condition: Fair
[2018-10-14] MEDS ORDERED: Meropenem 500 MG VIAL IV SCH (21:00)
[2018-10-14] MEDS ORDERED: ALBUMIN HUMAN 25% 50 ML IV SCH (21:00)
--- NOTE | 2018-10-14 21:56 | OP ---
Surgeon: Mario Cunha MD Please note this is a stat procedure. Preoperative Diagnoses: Acute renal failure. Hyperkalemia. Postoperative Diagnoses: Acute renal failure. Hyperkalemia. Procedures: Placement of right internal jugular Santos catheter. Interpretation of intraoperative fluoroscopy. Estimated Blood Loss: Minimal. Specimen: None. Findings: Normal anatomy. Anesthesia: MAC. Complications: None. Disposition: The patient tolerated the procedure in stable condition and taken back to ICU in stable condition. Procedure In Detail: The patient was brought to the OR and placed in supine position. MAC anesthesi a was begun. The patient was prepped and draped in usual sterile fashion. Lidocaine 1% infiltrated locally. An 18-gauge needle was used to access the right IJ vein. Guidewire was passed. The vein d ilated. Seldinger technique was used. Then, tip of the catheter was placed in the SVC under fluoros copy and then flushed with heparin and packed with heparin with good blood flow. 2-0 nylon used to s ecure the tube to the chest wall and then a sterile dressing was applied. The patient was awakened a nd taken back to ICU in good general condition, and a chest x-ray has been ordered. /MODL Voice ID: [id number] Report ID: [id number]
--- NOTE | 2018-10-14 22:05 | PREOPCON ---
Date of Consultation: 10/14/2018 Please note this is a stat consult for acute renal failure. The patient requires urgent dialysis. History Of Present Illness: The patient is a 73-year-old gentleman who was admitted on the with shortness of breath and workup at that time was to rule out pulmonary embolus, sepsis, and he had acute kidney injury, which has progressively gotten worse, and today his potassium is elevated and medically could not be brought down, therefore he needs emergent dialysis, and I was consulted f or catheter placement. The patient is awake, a little confused, in no acute distress. His respirato ry rate is slightly elevated, but he is maintaining his saturations. No sore throat, runny nose, cou gh, headaches, or dizziness. No chest pain at this time. No fever or chills. Review of Systems: Otherwise unremarkable. Past Medical History: Significant for kidney cancer being treated with immunotherapy, hypertension, hyperlipidemia, diabetes, prostate cancer, bladder cancer, melanoma, chronic atrial fibrillation with chronic anticoagulation therapy, his last dose of Xarelto was yesterday, renal insufficiency, and GE RD. Past Surgical History: Radical prostatectomy 22 years ago, back surgeries, sinus surgery, coronary a rtery angioplasty with stent placement, surgery for bladder cancer, removal of melanoma. Allergies: CODEINE, MORPHINE, PENICILLIN, AND HYDROCHLOROTHIAZIDE. Social History: Denies smoking or drinking. Family History: Significant for colon cancer, liver cancer, breast cancer, and lupus. Physical Examination: Vital Signs: Currently are stable. He is afebrile. General: He is awake, alert, but confused. Head and Neck: No masses. Chest: Clear. Heart: S1, S2. Abdomen: Soft. Extremities: Neurovascularly intact. Neuro: Nonfocal. Laboratory Data: His white count is 9000. He has a left shift. Platelets are 196. His chemistry s hows potassium of 6.5, his BUN is 105, creatinine is 3.48. GFR is 17. Assessment: Acute renal failure in patient with multiple medical problems and dyspnea. Recommendation: We will go ahead and place a Santos catheter for urgent dialysis. The patient and family understand the risks, benefits, and alternatives, and agree to procedure. /MODL Voice ID: [id number] Report ID: [id number]
[2018-10-14] MEDS: ATORVASTATIN 10 MG TABLET PO SCH (22:17)
[2018-10-14] MEDS: SENOKOT S PO SCH (22:19)
[2018-10-14] MEDS: Meropenem 500 MG in NA CHLORIDE 0.9% 100 ML IV SCH (22:24)
[2018-10-14] MEDS: VICTOZA INJECTION SQ SCH (22:30)
[2018-10-15] MEDS: METHYLPREDNISOLONE 40 MG INJ IV SCH ×3 (01:30→12:03)
[2018-10-15 06:05] LABS: Urine Protein/Creatinine Ratio 0.16 ratio (<0.15)
[2018-10-15 06:20] VITALS: BMI 39.2
[2018-10-15 06:28] LABS: Hematocrit 40.1 % (39.6-49.0); RBC Red Blood Cell Count 4.29 M/uL (4.33-5.43)
[2018-10-15 06:38] LABS: Albumin 2.1 g/dL (3.4-5.0); Bilirubin Total 2.8 mg/dL (0.2-1.0); Uric Acid 13.7 mg/dL (3.5-7.2)
[2018-10-15 06:42] LABS: Potassium 6.4 mmol/L (3.5-5.1)
[2018-10-15] MEDS ORDERED: D50W 25 GM/50 ML SYRINGE IV ONE (07:15)
[2018-10-15] MEDS ORDERED: INSULIN -REGULAR HUMAN 50 UNIT/0.5 ML ML IV ONE (07:16)
[2018-10-15] MEDS ORDERED: ALBUTEROL 2.5 MG/3 ML NEB SOL NEB ONE ×2 (07:17→07:40)
[2018-10-15] MEDS ORDERED: CALCIUM GLUC 10% INJ 4.65 MEQ in NA CHLORIDE 0.9% 100 ML IV ONE (08:00)
[2018-10-15] MEDS ORDERED: SOD POLYSTYREN SUL 15 GM/60 ML UCUP PO ONE ×2 (08:00→09:00)
[2018-10-15] MEDS ORDERED: ALBUTEROL 2.5 MG/3 ML NEB SOL ONE (08:07)
[2018-10-15] MEDS: ARFORMOTEROL TARTRATE 15 MCG/2 ML VIAL.NEB NEB SCH (08:24)
[2018-10-15 08:34] VITALS: O2SAT 95
[2018-10-15] MEDS: CARVEDILOL 25 MG PO SCH (08:50)
[2018-10-15] MEDS: Meropenem 500 MG in NA CHLORIDE 0.9% 100 ML IV SCH (08:58)
[2018-10-15] MEDS: ONDANSETRON 4 MG/2 ML VIAL IV PRN (08:59)
[2018-10-15] MEDS: INSULIN -REGULAR HUMAN 50 UNIT/0.5 ML ML SQ SCH ×2 (08:59→11:30)
[2018-10-15] MEDS: PREDNISONE 20 MG PO SCH (09:00)
[2018-10-15] MEDS: BAYER ASPIRIN 81 MG PO SCH (09:18)
[2018-10-15] MEDS: DAPSONE 100 MG TABLET PO SCH (09:20)
[2018-10-15] MEDS: MONTELUKAST 10 MG TAB PO SCH (09:31)
--- NOTE | 2018-10-15 09:58 | RAD REPORT ---
EXAM DESCRIPTION: RAD - Fluoroscopy <1 Hour - 10/15/2018 8:44 am CLINICAL HISTORY: Venous catheter insertion. HEMODIALYSIS CATHETER COMPARISON: Vent Perfusion VQ Scan dated 10/08/2018 FINDINGS: Fluoroscopic imaging is submitted from placement of a venous catheter. Details of the pro cedure not available. Fluoroscopy time: 0.1 minutes.
[2018-10-15] MEDS ORDERED: FAMOTIDINE 20 MG/2 ML VIAL IV SCH (10:00)
--- NOTE | 2018-10-15 10:05 | P.PN ---
Subjective Date of Service: 10/15/18 Chief Complaint: RESPIRATORY FAILURE SEVERE PULMONARY HYPERTENSION RENAL FAILURE Subjective: No new changes pt with CKD III,baseline cr 1.5, DM, renal Ca on immunotherapy , admitted for SOB , was treated for UTI pt was set for discharge, pt SOB got worse, repeated labs K 6.9, Cr 3.4 No NSAID or contrast Pt oliguric and was started on HD for relactant hyperkalemia today Bp borderline, trace edema on IVF now, if BP cont to be low then might consdier pressers K 6.4, HD today again oliguric will check CK, trop will repeat cultures will add vancomycin after cultures merrem dose adjusted liver US Physical Examination - Vital Signs Temperature: 96.6 F Blood Pressure: 98/65 Pulse: 96 Respirations: 25 Pulse Ox (%): 96 - Physical Exam General: Oriented x3, Moderate distress HEENT: Atraumatic, Normocephalic Neck: Supple, Without JVD or thyroid abnormality Respiratory: Clear to auscultation bilaterally Cardiovascular: Regular rate/rhythm, Normal S1 S2, Edema Gastrointestinal: Normal bowel sounds Integumentary: No rashes Assessment And Plan - Current Problems (Diagnosis) (1) MARVA (acute kidney injury) Current Visit: Yes Status: Acute (2) Hyperkalemia Current Visit: Yes Status: Acute - Plan MARVA possibly septic/Ischemic ATN vs AIN US: echogenic kidneys no hydro oliguric started on HD renal dose meds Shock cardiogenic vs septic will rept Bcx cardiac enzymes will add vanco TTE; LVEF 74% prednisone change to solumedrol hyperkalemia Mg supplement dcd Dialysis today Afib off Xarelto now Dm as per primary Pulm HTN on BiPAP now renal Ca elevated LFT likely from shock liver US prognosis guareded
--- NOTE | 2018-10-15 10:38 | P.PN ---
Subjective Date of Service: 10/16/18 Chief Complaint: RESPIRATORY FAILURE SEVERE PULMONARY HYPERTENSION RENAL FAILURE Subjective: Worsening (Patient's condition is worsening he has had dialysis yesterday still on BiPAP hyperkalemia renal failure abnormal liver function tests multi organ failure presumed sepsis) Review of Systems is unable to be obtained Physical Examination - Vital Signs Temperature: 96.6 F Blood Pressure: 98/65 Pulse: 96 Respirations: 25 Pulse Ox (%): 96 - Physical Exam General: Unresponsive (Minimally responsive) Neck: Supple Respiratory: Clear to auscultation bilaterally, Diminished Cardiovascular: Normal S1 S2, Edema Assessment & Plan - Problems (Diagnosis) (1) Respiratory failure Status: Acute Plan: Patient is currently in respiratory failure on BiPAP chest x-rays clear hypotensive labs reviewed lactic acid altered mental status Qualifiers: Chronicity: acute (2) Sepsis Status: Acute Plan: Patient is severe sepsis he is on Solu-Medrol I have added thiaine vitamin-C fungal cultures Diflucan agree with vancomycin prognosis is very poor due to multiorgan failure worsening renal failure abnormal liver function testing Qualifiers: Sepsis type: sepsis due to unspecified organism Qualified Code(s): A41.9 - Sepsis, unspecified organism
--- NOTE | 2018-10-15 10:45 | RAD REPORT ---
EXAM DESCRIPTION: RAD - Chest Single View - 10/14/2018 9:15 pm CLINICAL HISTORY: S/P CHA insertion Chest pain. COMPARISON: No comparisonsChest Single View dated 10/14/2018; Chest Single View dated 10/10/2018; Ches t Single View dated 10/07/2018; Chest Pa And Lat (2 Views) dated 09/09/2017 FINDINGS: Portable technique limits examination quality. Right-sided venous catheter is in place with tip in the SVC. Left-sided PICC line is noted. No postpr ocedure pneumothorax. The heart is moderately enlarged in size. IMPRESSION: No postprocedure pneumothorax.
[2018-10-15] MEDS ORDERED: NOREPINEPHRINE 8 MG in Dextrose 5%-Water 500 ML IV PRN (10:51)
[2018-10-15] MEDS: D5W 1,000 ML with NA BICARB 8.4% 150 MEQ IV SCH ×2 (10:58)
[2018-10-15] MEDS ORDERED: THIAMINE 200 MG/2 ML INJ IVP ONE ×2 (11:00→13:00)
[2018-10-15] MEDS ORDERED: FLUCONAZOLE 400 MG IVPB 400 MG/200 ML BAG IV SCH (11:00)
[2018-10-15] MEDS ORDERED: ASCORBIC ACID 500 MG TABLET PO SCH (11:00)
[2018-10-15] MEDS ORDERED: ENOXAPARIN 30 MG/0.3 ML SQ SCH (12:00)
[2018-10-15] MEDS ORDERED: RSI MEDICATION KIT IV ONE (13:59)
[2018-10-15] MEDS ORDERED: VANCOMYCIN 1 GM in NA CHLORIDE 0.9% 500 ML IVPB ONE (14:00)
[2018-10-15] MEDS ORDERED: ROCURONIUM 50 MG/5 ML VIAL IV ONE (14:02)
[2018-10-15] MEDS ORDERED: MIDAZOLAM HCL 2 MG/2 ML INJ ONE (14:02)
[2018-10-15] MEDS ORDERED: PROPOFOL 0 MG/0 ML VIAL IV ONE (14:02)
[2018-10-15] MEDS ORDERED: MIDAZOLAM HCL 100 MG/NS 100 ML IV PRN ×2 (14:03)
[2018-10-15] MEDS ORDERED: NA CHLORIDE 0.9% 1,000 ML ONE (14:21)
[2018-10-15] MEDS ORDERED: Caclcium Chloride 10% INJ SYR IV ONE (14:24)
[2018-10-15] MEDS ORDERED: EPINEPHrine 1 MG/10 ML SYR IV ONE (14:24)
[2018-10-15] MEDS ORDERED: ATROPINE SULFATE 1 MG/ML INJ IV ONE (14:24)
[2018-10-15 14:29] LABS: Arterial Blood Carboxyhemoglob 0.7 % (0-1.5); Blood Gas Oxyhemoglobin 91.3 % (94-97); Blood O2 Saturation 93.1 % (92-98.5)
--- NOTE | 2018-10-15 14:33 | PN ---
Date of Progress Note: 10/15/2018 Subjective: The patient was seen this morning for followup, lying in bed, not in any distress. He a ppears lot weaker than yesterday. He was lying in bed with his eyes fdc closed and his voice is very soft. He was able to recognize me and answer simple questions. He was on BiPAP when I saw him. Intake and output records reviewed. Objective: Vital Signs: Reviewed. HEENT: Unremarkable. Lungs: Bilateral shallow air entry. No rhonchi or rales heard. Heart: Sounds normal. Abdomen: Soft. Bowel sounds normal. No guarding, rigidity, tenderness, distention. Extremities: No leg edema. Laboratory Data: White count 10.6, hemoglobin 12.5, platelets 196. Sodium 135, potassium 6.4, chlor bryan 98, bicarb 19, BUN 77, creatinine 3.48, glucose 131, total bilirubin 2.8, SGOT 587, SGPT 372, alk alka phosphatase 276. Impression: 1.Acute respiratory failure. 2.Acute renal failure. 3.Atrial fibrillation. 4.Diabetes mellitus. 5.Kidney cancer with metastatic disease to liver. 6.Hyperkalemia. 7.Urinary tract infection. Plan: We will continue current IV antibiotic, which is meropenem. The patient is on chronic steroid therapy for many years and currently we are giving him IV steroids. Dr. Portillo has added IV Diflu can as he is at increased risk of fungal infection. The patient did have his first session of dialys is yesterday. It has not helped his renal function or potassium to any significant level so this mor yaw, he will have another session of dialysis. Dialysis access catheter was placed yesterday by gen praful surgeon. Cardiology consultation is appreciated and Dr. Ewing has ordered Lovenox to be starte d this morning. Pharmacy consult for Lovenox dose was ordered, and I did ask the nurse to contact renny alejandre to go ahead and put that Lovenox order in so we it can be given this morning. The patient's o verall prognosis is poor. I did talk to the patient's and she did inform me that the patient oneill s metastatic disease to liver and he is undergoing immunotherapy at [facility] for that reason. She was also made aware of the fact that if his respiratory status deteriorates, we may have to consider ventilator support and she understands that. We will continue to follow up with ip counsel, pulmo nologist and insulation blanket maker. Some of his nonessential medications were discontinued today. AIRAM/MODL Voice ID: [id number] Report ID: [id number]
--- NOTE | 2018-10-15 14:57 | PN ---
He is now getting hemodialysis to try and get his potassium down. His creatinine is elevated by itse lf. It probably would not have prompted dialysis at this point, but at 05:20 this morning, his potas sium was still 6.4. So, he is getting another round of dialysis trying to get the potassium to come down. Kayexalate, calcium gluconate, and bicarb have failed to get the potassium down. I think dial ysis is the only option. LUIS MANUEL/ANGIE Voice ID: [id number] Report ID: [id number]
[2018-10-15] MEDS ORDERED: ETOMIDATE 20 MG/10 ML VIAL IV ONE (18:55)
[2018-10-15] MEDS ORDERED: ATROPINE SULFATE 1 MG/ML INJ IM ONE (18:55)
--- NOTE | 2018-10-15 20:21 | EKG ---
Test Date: 2018-10-14 Test Time: 10:02:47 Transitions Manager: PATRICIA MEASUREMENT RESULTS: Intervals: Rate: 109 DC: QRSD: 98 QT: 356 QTc: 479 Union: P: DC: QRS: -69 T: 12 INTERPRETIVE STATEMENTS: Atrial fibrillation with rapid ventricular response with premature ventricular or aberrantly conducted complexes Left axis deviation Inferior infarct, age undetermined Possible Anterolateral infarct, age undetermined Abnormal ECG Compared to ECG 10/07/2018 16:38:06 Ventricular premature complex(es) now present Left-axis deviation now present Myocardial infarct finding now present Electronically Signed On 10-15-18 20:21:27 CDT by Tacos Ewing
[2018-10-16 08:14] VITALS: BP 98/65; TEMP 96.6
--- NOTE | 2018-10-16 08:37 | CON ---
Date of Consultation: 10/14/2018 Reason For Consult: MARVA and hyperkalemia. Chief Complaint: Shortness of breath. History Of Present Illness: This is a 73-year-old man with past medical history of antico agulation; diabetic, on metformin and Tradjenta; COPD, on inhaler and steroids; hypertension; history of kidney cancer 1 month ago, was admitted for as per . The patient prese nted with shortness of breath duration abnormality. The patient inh aler and . The patient has CKD, 3, creatinine 1.5, creatinine was . The patient was subsequently discharged. If he , creatinine was 3.25 with the calcium of 6 .9. constipation, the patient was started on and the patient was transferred t o the ICU for further management. Review of Systems: As above. Past Medical History: As above. Past Surgical History: Prostatectomy in 1996, sinus surgery in 2009, 2014, bladder cancer and removal, and melanoma removal. Allergies: THE PATIENT HAS PENICILLIN. PER , THE PATIENT WAS TO PENICI LLIN. THE PATIENT IS ALSO ALLERGIC TO MORPHINE, . Family History: Noncontributory. Social History: Negative for smoking. Medications: See MAR. Physical Examination: General: Awake, alert, not in any distress. Chest: Decreased air entry to the bases. Heart: Regular rate and rhythm. Normal S1 and S2. Abdomen: Distended , soft and nontender. Extremities: +1 edema in the lower extremities. Laboratory Data: Significant for sodium 136, potassium 6.4, BUN of , creatinine of 8.2. Assessment And Plan: 1.Acute kidney injury, creatinine creatinine up to 6.6 with BUN of possibly ac [place] tubular necrosis hypertension versus acute interstitial nephritis from antibiotic. __ . We will send for serology workup. Ultrasound result is pending. I have reviewed the film s that showed echogenic kidney with no hydro. I will start him on bicarb drip. We will monitor urin e output. We will discontinue blood pressure medication. We will send for a full serology workup. If no improvement, the patient will require hemodialysis. I have discussed with the patient and at bedside. 2.Hyperkalemia due to acute kidney injury. We will discontinue magnesium supplement. We will start on Kayexalate, . If no improvement, then we will start the patient on hemodialysis. 3.Diabetes mellitus . 4.Urinary tract infection. The patient has ESBL. The patient more than a wee k, dose adjusted. We will consider to discontinue and switch to Zosyn. If cre atinine continue to worse, we will send the urine for eosinophils. 5.Hypertension. Blood pressure . We will discontinue hydralazine. 6.History of kidney cancer as per . The patient is not a candidate for surgery due to possible , tried chemotherapy last Summer. The patient was suggested immunotherapy as the last line of treatment and we will start . Obtain supportive care for now. We will continue ____ for prophylaxis. Overall, the prognosis is guarded. ALEJANDRA/MODL Voice ID: [id number] Report ID: [id number]
--- NOTE | 2018-10-16 08:38 | CON ---
Date of Consultation: 10/14/2018 Chief Complaint: Shortness of breath and cough. Reason For Consult: MARVA and hyperkalemia. History Of Present Illness: A 73-year-old man with past medical history of lung cancer presented to [facility], as per . Had chemotherapy with no significant imp rovement and was started on immunotherapy last month, on for prophylaxis; history of AFib, on anticoagulation; coronary artery disease; diabetes mellitus; hyperlipidemia; and CKD with baselin e creatinine of 1.5. The patient was admitted for shortness of breath. treated for pseud omonas ESBL with . The patient was for discharge he was not feeling well with shortness of breath with creatinine of 3.4 and potassium 6.9, and hence we were consulted. Review of Systems: No nausea, vomiting, diarrhea, or constipation. No palpitation. Past Medical History: As above. Past Surgical History: Radical prostatectomy in 1996, sinus surgery, cardiac stent in 2014, __ removal, and melanoma removal. Family History: Noncontributory. Social History: Negative for smoking. Allergies: THE PATIENT IS ALLERGIC TO PENICILLIN. PER , THE PATIENT WAS TESTED AND HE IS NOT ALLERGIC TO PENICILLIN. ALLERGIC TO MORPHINE, CAUSE ITCHING. Physical Examination: General: Awake, alert, oriented x3, in moderate distress. Chest: Clear to auscultation bilaterally. No rales or wheezes. Heart: Regular rate and rhythm. Normal S1, S2. Abdomen: Soft, nontender. Extremities: +1 edema. Laboratory Data: Reviewed. Medications: See MAR. Assessment And Plan: 1.Acute kidney injury on chronic kidney disease. acute tubular necrosis sepsi s. acute tubular necrosis. from antibiotic, nonoliguric. Ultrasound, no hydr o. If potassium continues to he high, then we will start him on hemodialysis. We will fu ll serology workup. 2.Hyperkalemia. We will Kayexalate, insulin, and calcium gluconate. __ hyperkalemia treatment and then we will start him on hemodialysis and check level. 3.Hypertension. The patient is hypertensive right now. . The patient continued to be __ . 4.Sepsis. Urine culture . Continue to monitor. 5.Pulmonary hypertension . Prednisone . ALEJANDRA/MODL Voice ID: [id number] Report ID: [id number]
[2018-10-16] MEDS ORDERED: Meropenem 500 MG in NA CHLORIDE 0.9% 100 ML IV SCH ×4 (09:00)
[2018-10-19 23:52] LABS: Albumin, (SPE) 2.3 g/dL (3.8-4.8); Alpha-1-Globulins 0.3 g/dL (0.2-0.3); Alpha-2-Globulins 0.5 g/dL (0.5-0.9); Gamma Globulins 0.8 g/dL (0.8-1.7); INTERPRETATION REPORT
[2018-10-20 04:22] LABS: HBsAG Nonreactive (Nonreactive)
[2018-10-20 22:27] LABS: P-ANCA Anti-Myeloperoxidase Ab <1.0 AI (<1.0)
--- NOTE | 2018-10-29 15:34 | DS ---
Date of Discharge: 10/15/2018 Disposition: The patient . Physical Examination: See copy of today's progress note for details. Hospital Course: A 73-year-old very pleasant male patient, who has multiple comorbidities including kidney cancer, bladder cancer, undergoing immunotherapy at [facility], came into our emergency room with shortness of breath, feeling tired, and dry cough. Please see dictated H and P for more information. The patient had urinary tract infection and he was admitted to the hospital. We were concerned about possibility of sepsis or pulmonary embolism. Appropriate cultures were obtained including blood culture, urine culture, and empiric antibiotic was started. Chest x-ray did not show any pneumonia. He was having shortness of breath, so we did obtain V/Q scan and venous Doppler of lower extremity and both of these tests were negative for any blood clot. Echocardiogram revealed evidence of normal ejection fraction 74%. It also showed severe pulmonary hypertension. The patient was seen by multiple consultants during this hospitalization. He also had volume depletion, which was addressed. The patient's urine culture results came back and he had resistant bacteria, Proteus mirabilis, and this was ESBL, so he was given meropenem and our plan was to send him home with 2 weeks of IV meropenem. He did continue to require oxygen and we had respiratory therapist continue to work with him to try to wean off his oxygen. Physical therapy was consulted to help ambulate the patient. He continued to have generalized weakness and shortness of breath, but those complaints were slowly improving. PICC line was placed. He takes chronic oral steroid therapy, which was continued. He continued to require oxygen, so finally we decided to also have Social Service help us make arrangements for home oxygen. Social Service was requested to help make arrangements for home oxygen and meanwhile the patient's condition deteriorated while he was in the hospital. He was transferred from medical floor to ICU because of blood pressure dropped to low and he was transferred to ICU. Also had acute respiratory failure along with this low blood pressure, so BiPAP was applied and Dr. Portillo was consulted. His BUN went up to 94, creatinine 3.25. Cardiology consultation was also requested because of his atrial fibrillation problem. His potassium went up along with acute renal failure and appropriate treatment was given for high potassium, but it did not help his potassium level to come down and wellness ambassador recommended emergent dialysis and he had 2 sessions of dialysis for this acute renal failure and hyperkalemia. On 10/15/2018, his condition was deteriorating, which was very obvious when I saw him. Details were discussed with the patient's and we also talked about if his condition deteriorates in terms of respiratory failure , he may require ventilator support. Eventually later on, the patient went into cardiac arrest and was at the hospital at that time with him and she requested at that time no resuscitative measures to be provided and the patient . Final Diagnoses: 1. Cardiac arrest. 2. Acute respiratory failure. 3. Acute renal failure. 4. Urinary tract infection, organism proteus. 5. Atrial fibrillation, paroxysmal. 6. Hyperkalemia. 7. Diabetes mellitus. 8. Kidney cancer with metastatic disease to liver. 9. Hypertension. AIRAM/MODL Voice ID: [id number] Report ID: [id number]
== END 2018-10-15 14:25 | disposition expired | DRG 193 ==
LOC: ER 15:20 → ERHOLD 18:40 → 4TH 21:13 → 3RD-ICU 10-13 21:51
PROVIDERS: ADMIT Internal Medicine; ATTEND Internal Medicine
PROC: B548ZZA Ultrasonography of Superior Vena Cava, Guidance (ICD-10-PCS; 2018-10-09)
PROC: 02HV33Z Insertion of Infusion Device into Superior Vena Cava, Percutaneous Approach (ICD-10-PCS; principal; 2018-10-10)
PROC: 0JH63XZ Insertion of Tunneled Vascular Access Device into Chest Subcutaneous Tissue and Fascia, Percutaneous Approach (ICD-10-PCS; 2018-10-14)
PROC: 02HV33Z Insertion of Infusion Device into Superior Vena Cava, Percutaneous Approach (ICD-10-PCS; 2018-10-14)
PROC: B518YZA Fluoroscopy of Superior Vena Cava using Other Contrast, Guidance (ICD-10-PCS; 2018-10-14)
PROC: 5A1D70Z Performance of Urinary Filtration, Intermittent, Less than 6 Hours Per Day (ICD-10-PCS; 2018-10-14)
PROC: 5A1D70Z Performance of Urinary Filtration, Intermittent, Less than 6 Hours Per Day (ICD-10-PCS; 2018-10-15)
DX: J18.9 Pneumonia, unspecified organism (principal); J96.00 Acute respiratory failure, unspecified whether with hypoxia or hypercapnia; N17.0 Acute kidney failure with tubular necrosis; N39.0 Urinary tract infection, site not specified; N17.9 Acute kidney failure, unspecified; C64.9 Malignant neoplasm of unspecified kidney, except renal pelvis; C78.7 Secondary malignant neoplasm of liver and intrahepatic bile duct; Z88.5 Allergy status to narcotic agent; Z88.0 Allergy status to penicillin; E78.2 Mixed hyperlipidemia; Z79.01 Long term (current) use of anticoagulants; K21.9 Gastro-esophageal reflux disease without esophagitis; B96.4 Proteus (mirabilis) (morganii) as the cause of diseases classified elsewhere; Z16.12 Extended spectrum beta lactamase (ESBL) resistance; E86.9 Volume depletion, unspecified; E11.65 Type 2 diabetes mellitus with hyperglycemia; D64.9 Anemia, unspecified; J44.9 Chronic obstructive pulmonary disease, unspecified; I27.20 Pulmonary hypertension, unspecified; E87.5 Hyperkalemia; I95.9 Hypotension, unspecified; C43.9 Malignant melanoma of skin, unspecified; I12.9 Hypertensive chronic kidney disease with stage 1 through stage 4 chronic kidney disease, or unspecified chronic kidney disease; E11.22 Type 2 diabetes mellitus with diabetic chronic kidney disease; N18.3 Chronic kidney disease, stage 3 (moderate); I46.9 Cardiac arrest, cause unspecified; I48.0 Paroxysmal atrial fibrillation; Z85.46 Personal history of malignant neoplasm of prostate; Z85.51 Personal history of malignant neoplasm of bladder
CPT/HCPCS: 36415; 71045; 76000; 76770; 78582; 80048; 80053; 81003; 82550; 82553; 82570; 82805; 82962; 83520; 83605; 83735; 83880; 84145; 84156; 84165; 84484; 84550; 85025; 85027; 86021; 86038; 86160; 86317; 86334; 86335; 86430; 86704; 86706; 86803; 87040; 87077; 87086; 87088; 87186; 87340; 88108; 90935; 93005; 93306; 93970; 94640; 94660; 94760; 96365; 96366; 96375; 97116; 97163; 97530; 99285; A9540; A9558; J0171; J0330; J0456; J0461; J0610; J0696; J1450; J1644; J1650; J1940; J2150; J2250; J2405; J2550; J2704; J2920; J2930; J3411; J7030; J7060; J7605